=== PATIENT | male | born 1950 | race Caucasian/White ===

== ENCOUNTER 2018-06-28 09:45 | Outpatient (RCR) | payer MEDICARE, OTHER, SELFPAY ==
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
== END 2018-06-28 16:40 ==
LOC: PHYS 09:45
PROVIDERS: PCP Family Medicine; Visit Provider Family Medicine
DX: S39.012A Strain of muscle, fascia and tendon of lower back, initial encounter (principal)
CPT/HCPCS: 97110; 97140; 97162

== ENCOUNTER → 2018-08-18 06:46 | Outpatient (CLI) | payer MEDICARE, OTHER, SELFPAY ==
[2018-08-18 08:10] LABS: Appearance Urine UA CLEAR; Bilirubin Urine UA NEGATIVE (NEGATIVE); Color Urine UA YELLOW; Glucose Urine UA NEGATIVE (Negative); Ketones Urine UA NEGATIVE (NEGATIVE); Leukocyte Esterase Urine UA NEGATIVE (NEGATIVE); Nitrite Urine UA NEGATIVE (Negative); Occult Blood Urine UA NEGATIVE (Negative); Protein Urine UA NEGATIVE (Negative); Specific Gravity Urine UA 1.025 (1.000-1.035); Urobilinogen Urine UA 0.2 E.U./dL (0.2); pH Urine UA 5.5 (4.5-8.0)
[2018-08-18 08:15] LABS: Add Manual Diff / Slide Review NO; Basophils Absolute Auto 0 /uL (0-100); Basophils Percent Auto 0.8 % (0-2); Eosinophils Absolute Auto 300 /uL (0-450); Eosinophils Percent Auto 4.4 % (2-4); Hematocrit 43.8 % (41-53); Hemoglobin 14.7 g/dL (13.5-17.5); Lymphocytes Absolute Auto 1800 /uL (1100-4500); Mean Corpuscular HGB Conc 33.5 % (30-36); Mean Corpuscular Hemoglobin 31.4 PG (26-34); Mean Corpuscular Volume 93.6 fL (80-100); Monocytes Absolute Auto 400 /uL (0-900); Monocytes Percent Auto 6.1 % (3-14); Neutrophils Absolute Auto 3400 /uL (1500-7000); Neutrophils Percent Auto 57.7 % (50-75); Platelet Count 299 X10^3/uL (150-400); Red Blood Cell Count 4.68 X10^6/uL (4.5-5.9); Red Cell Distribution Width 13.3 % (11.6-14.8); White Blood Cell Count 5.8 X10^3/uL (4.5-11.0)
[2018-08-18 08:34] LABS: Alanine Aminotransferase 20 IU/L (21-72); Albumin 4.2 g/dL (3.5-5.0); Albumin Globulin Ratio 1.6 (1.0-2.8); Alkaline Phosphatase 90 U/L (38-126); Aspartate Aminotransferase 20 IU/L (17-59); BUN Creatinine Ratio 42.9 (6-22); Bilirubin Total 0.4 mg/dL (0.2-1.3); Blood Urea Nitrogen 30 mg/dL (9-20); Calcium 9.6 mg/dL (8.4-10.2); Carbon Dioxide 28 mmol/L (22-32); Chloride 106 mmol/L (98-107); Cholesterol 178 mg/dL (140-199); Estimated Glomerular Filt Rate > 60.0 mL/min (>60); Globulin 2.6 g/dL (1.7-4.1); Glucose 104 mg/dL (80-110); HDL Cholesterol 48 mg/dL (40-60); HEMOLYSIS < 15 (0-50); LDL Cholesterol Calculated 115 mg/dL (<100); Potassium 4.5 mmol/L (3.4-5.1); Sodium 142 mmol/L (137-145); Total Protein 6.8 g/dL (6.3-8.2); Triglycerides 77 mg/dL (35-150)
[2018-08-18 08:57] LABS: Vitamin D 25 Hydroxy (D3) 19.4 ng/mL (30.0-100.0)
[2018-08-18 09:02] LABS: Prostate Specific Antigen Scrn 4.07 ng/mL (0.1-4.0)
[2018-08-18 09:12] LABS: Thyroid Stimulating Hormone 1.43 uIU/mL (0.47-4.68)
== END ==
PROVIDERS: Nurse Practitioner Psychiatric/Mental Health; PCP Family Medicine; Visit Provider Family Medicine
DX: E78.5 Hyperlipidemia, unspecified (principal); F10.20 Alcohol dependence, uncomplicated; Z51.81 Encounter for therapeutic drug level monitoring; Z12.5 Encounter for screening for malignant neoplasm of prostate; F31.9 Bipolar disorder, unspecified
CPT/HCPCS: 36415; 80053; 80061; 81003; 82306; 84443; 85025; G0103

== ENCOUNTER → 2020-06-12 09:43 | Outpatient (CLI) | payer MEDICARE, OTHER, SELFPAY ==
[2020-06-12 10:25] LABS: Add Manual Diff / Slide Review NO; Basophils Absolute Auto 100 /uL (0-100); Basophils Percent Auto 0.9 % (0-2); Eosinophils Absolute Auto 300 /uL (0-450); Eosinophils Percent Auto 4.1 % (2-4); Hematocrit 42.6 % (41-53); Hemoglobin 14.3 g/dL (13.5-17.5); Lymphocytes Absolute Auto 1600 /uL (1100-4500); Lymphocytes Percent Auto 25.1 % (25-40); Mean Corpuscular HGB Conc 33.5 % (30-36); Mean Corpuscular Hemoglobin 31.1 PG (26-34); Mean Corpuscular Volume 92.8 fL (80-100); Monocytes Absolute Auto 500 /uL (0-900); Monocytes Percent Auto 8.4 % (3-14); Neutrophils Absolute Auto 4000 /uL (1500-7000); Neutrophils Percent Auto 61.5 % (50-75); Platelet Count 316 X10^3/uL (150-400); Red Blood Cell Count 4.59 X10^6/uL (4.5-5.9); Red Cell Distribution Width 13.3 % (11.6-14.8); White Blood Cell Count 6.5 X10^3/uL (4.5-11.0)
[2020-06-12 11:10] LABS: Alanine Aminotransferase 20 IU/L (<50); Albumin Globulin Ratio 1.7 (1.0-2.8); Alkaline Phosphatase 78 U/L (38-126); Aspartate Aminotransferase 21 IU/L (17-59); BUN Creatinine Ratio 25.8 (6-22); Blood Urea Nitrogen 17 mg/dL (9-20); Calcium 9.4 mg/dL (8.4-10.2); Carbon Dioxide 27 mmol/L (22-32); Chloride 106 mmol/L (98-107); Cholesterol 184 mg/dL (140-199); Estimated Glomerular Filt Rate > 60.0 mL/min (>60); Globulin 2.3 g/dL (1.7-4.1); Glucose 99 mg/dL (80-110); HDL Cholesterol 64 mg/dL (40-60); HEMOLYSIS < 15 (0-50); LDL Cholesterol Calculated 83 mg/dL (<100); Potassium 4.4 mmol/L (3.4-5.1); Sodium 139 mmol/L (137-145); Total Protein 6.3 g/dL (6.3-8.2); Triglycerides 183 mg/dL (35-150)
[2020-06-12 11:11] LABS: Bilirubin Total < 0.1 mg/dL (0.2-1.3)
[2020-06-12 11:38] LABS: Prostate Specific Antigen Scrn 4.13 ng/mL (0.1-4.0)
== END ==
PROVIDERS: PCP Family Medicine; Referring Provider Family Medicine; Visit Provider Family Medicine
DX: E03.8 Other specified hypothyroidism (principal); Z12.5 Encounter for screening for malignant neoplasm of prostate; E78.5 Hyperlipidemia, unspecified; I10 Essential (primary) hypertension
CPT/HCPCS: 36415; 80053; 80061; 85025; G0103

== ENCOUNTER 2020-10-20 15:49 | Emergency (ER) | payer MEDICARE, OTHER, SELFPAY ==
[2020-10-20 15:55] VITALS: BP 133/83; PULSE 83; RESP 16; TEMP 36.9; O2SAT 99
[2020-10-20] MEDS: TET,DIPH,PERTUSS(ACELL),VAC/PF 0.5 ML SYRINGE IM (16:17)
--- NOTE | 2020-10-20 16:37 | ED.WOUNDLAC ---
HPI - Wound/Laceration General Chief Complaint: Wound/Laceration Stated Complaint: Head Laceration, No Blood Thinners Time Seen by Provider: 10/20/20 16:35 Source: patient Mode of arrival: Ambulatory History of Present Illness HPI narrative: Patient is a 70-year-old male who presents with a head laceration. He states he was looking under the rod of his car he stood up hit the top of his head on the corner of the rod and bled. He is not on any anti-platelet or anti coagulation. He did not lose consciousness no nausea or vomiting. Related Data Home Medications Medication Instructions Recorded Confirmed cyanocobalamin (vitamin B-12) 250 250 mcg PO QDAY #0 04/03/16 10/02/20 mcg tablet (Vitamin B-12) [OMEGA-3] PO QDAY #0 02/04/17 10/02/20 clobetasol-emollient 0.05 % 1 samuel TOPICAL #0 07/05/17 10/02/20 topical cream cholecalciferol (vitamin D3) 25 1,000 unit PO DAILY 12/30/18 10/02/20 mcg (1,000 unit) capsule phytonadione (vitamin K1) 5 mg 5 mg PO DAILY 11/16/19 10/02/20 tablet multivitamin 1 cap PO DAILY 01/18/20 10/02/20 Previous Rx's Medication Instructions Recorded triamcinolone acetonide 0.1 % 1 samuel TOPICAL BID #30 gm 03/05/17 topical cream clotrimazole-betamethasone 1 1 samuel TOPICAL BID #30 gm 04/06/17 %-0.05 % topical cream (Lotrisone) hydroxyzine HCl 10 mg tablet 20 mg PO BID PRN #120 tab MDD 40 mg 10/02/20 lamotrigine 100 mg tablet 200 mg PO QDAY #180 tab 10/02/20 risperidone 0.5 mg tablet 0.5 mg PO BEDTIME #90 tab 10/02/20 (Risperdal) Allergies Allergy/AdvReac Type Severity Reaction Status Date / Time No Known Drug Allergies Allergy Verified 10/02/20 08:59 Review of Systems Review of Systems Narrative: GENERAL: Denies chills,fever HEENT: Denies throat pain RESPIRATORY: Denies dyspnea, cough, wheezing CARDIOVASCULAR: Denies chest pain, palpitations GASTROINTESTINAL: Denies nausea, vomiting MUSCULOSKELETAL: Denies extremity pain, injury SKIN: Scalp laceration, see HPI NEUROLOGIC: Denies weakness, dizziness, headache, numbness 8 point review of systems is negative except for those stated above and HPI Patient History Medical History Cataracts, bilateral (~2015) Fractures (~2000) Herpes (~1969) Preventative health care Psoriasis (~2015) Surgical History Anesthesia History of eye surgery (~2015) History of lithotripsy (~1982) History of tonsillectomy Family History Father Cancer Brother Cancer Grandfather Flu Grandfather History of heart disease Hyperlipidemia Hypertension Social History Smoking Status: Former smoker Smoking Status: Former smoker Substance Use Type: marijuana Exam Initial Vital Signs Initial Vital Signs: Vital Signs Temperature 98.5 F 10/20/20 15:55 Pulse Rate 83 10/20/20 15:55 Respiratory Rate 16 10/20/20 15:55 Blood Pressure 133/83 10/20/20 15:55 Pulse Oximetry 99 10/20/20 15:55 GENERAL: Well-appearing, well-nourished and in no acute distress. CARDIOVASCULAR: peripheral pulses in tact, cap refill <2 sec RESPIRATORY: No respiratory distress, speaks in full sentences without difficulty EXTREMITIES: Normal range of motion, no clubbing or edema. Neurovascularly intact NEUROLOGICAL: Cranial nerves II through XII grossly intact. Normal gait and speech. SKIN: 4cm laceration superior part of scalp more on the right side. 2 cm of that is some mild gapping but overall has good skin approximation Procedures Laceration Repair Laceration 1: Time of procedure: 17:07 Size (cm): 4 Description: linear Depth: simple, single layer Local Anesthetic: lidocaine 1% Amount of anesthesia used (mL): 4 Pre-repair: wound explored, irrigated extensively and deep structures intact Skin layer closed with: carolina (4) Course Orders Ordered: Discontinued Medications Diphtheria/Tetanus/Acell Pertussis (Tet,Diph,Pertuss(Acell),Vac/Pf 0.5 Ml Syringe) 0.5 ml IM .ONCE ONE Stop: 10/20/20 16:04 Last Admin: 10/20/20 16:17 Dose: 0.5 ml Documented by: ERROL Lidocaine HCl (Lidocaine 1% (Pf)) 4 ml SUBCUT NOW ONE Stop: 10/20/20 16:40 Vital Signs Vital signs: Vital Signs - 8 hr 10/20/20 15:55 Temperature 98.5 F Pulse Rate 83 Respiratory Rate 16 Blood Pressure 133/83 Pulse Oximetry 99 Discharge Plan Departure Patient Disposition: Home Clinical Impression: Laceration of scalp Qualifiers: Encounter type: initial encounter Qualified Code(s): S01.01XA - Laceration without foreign body of scalp, initial encounter Instructions: DI for Laceration Repair -- [place] Activity Restrictions/Additional Instructions: Unfortunately you cut the top of your head today and required 4 carolina. You will need to have your carolina removed in about 5 days either by her primary care physician, walk-in clinic or the emergency department. You may wash your hair. Infected is encouraged that you keep this clean and dry. You may apply Neosporin to his or antibiotic ointment 1-2 times daily to help with healing. You may take Tylenol 650 mg every 4-6 hours if needed for pain Or you may take Motrin 600 mg every 8 hours if needed for pain Please follow-up with your primary care provider in the next 5 days to have your carolina removed Return to the emergency department if you should have increased redness pus swelling, persistent vomiting numbness tingling or weakness or any new concerning symptoms Prescriptions: No Action cholecalciferol (vitamin D3) 1,000 unit capsule 1,000 unit PO DAILY RF: 0 multivitamin Capsule 1 cap PO DAILY RF: 0 risperidone [Risperdal] 0.5 mg tablet 0.5 mg PO BEDTIME Qty: 90 RF: 3 lamotrigine 100 mg tablet 200 mg PO QDAY Qty: 180 RF: 3 hydroxyzine HCl 10 mg tablet 20 mg PO BID MDD 40 mg PRN (Reason: anxiety) Qty: 120 RF: 3 phytonadione (vitamin K1) 5 mg tablet 5 mg PO DAILY RF: 0 cyanocobalamin (vitamin B-12) [Vitamin B-12] 250 MCG tablet 250 mcg PO QDAY Qty: 0 RF: 0 [OMEGA-3] PO QDAY Qty: 0 RF: 0 triamcinolone acetonide 0.1 % cream 1 samuel Topical BID Qty: 30 RF: 0 clotrimazole-betamethasone [Lotrisone] 15 GM cream 1 samuel Topical BID Qty: 30 RF: 1 clobetasol-emollient 0.05 % cream 1 samuel Topical Qty: 0 RF: 0 Referrals: Arron Franz DO [Primary Care Provider] -
[2020-10-20] MEDS: LIDOCAINE 1% (PF) 4 ML SUBCUT (17:20)
== END 2020-10-20 17:23 | disposition home or self-care (01) ==
PROVIDERS: Emergency Provider Emergency Medicine; PCP Family Medicine
DX: S01.01XA Laceration without foreign body of scalp, initial encounter (principal); W22.8XXA Striking against or struck by other objects, initial encounter; Z23 Encounter for immunization
CPT/HCPCS: 12002; 90471; 99283; 90715

== ENCOUNTER 2020-10-29 12:20 | Emergency (ER) | payer MEDICARE, OTHER, SELFPAY ==
[2020-10-29 12:37] VITALS: BP 122/76; PULSE 63; RESP 14; TEMP 36.2; O2SAT 99
--- NOTE | 2020-10-29 14:00 | ED.RECABL ---
HPI - Recheck/Abnormal Lab/Rx General Chief Complaint: Recheck/Abnormal Lab/Rx Stated Complaint: Needs stitches out Time Seen by Provider: 10/29/20 14:00 Source: patient Mode of arrival: Ambulatory Limitations: no limitations History of Present Illness HPI narrative: This is a 70-year-old male comes emergency department with request for for move all of carolina. Patient had carolina placed in his scalp after hitting his head on the rod of his car while working on it and standing up words. Patient states it has been healing well. They have been putting some triple manic ointment on it. He has no other concerns or complaints today. Related Data Home Medications Medication Instructions Recorded Confirmed cyanocobalamin (vitamin B-12) 250 250 mcg PO QDAY #0 04/03/16 10/02/20 mcg tablet (Vitamin B-12) [OMEGA-3] PO QDAY #0 02/04/17 10/02/20 clobetasol-emollient 0.05 % 1 samuel TOPICAL #0 07/05/17 10/02/20 topical cream cholecalciferol (vitamin D3) 25 1,000 unit PO DAILY 12/30/18 10/02/20 mcg (1,000 unit) capsule phytonadione (vitamin K1) 5 mg 5 mg PO DAILY 11/16/19 10/02/20 tablet multivitamin 1 cap PO DAILY 01/18/20 10/02/20 Previous Rx's Medication Instructions Recorded triamcinolone acetonide 0.1 % 1 samuel TOPICAL BID #30 gm 03/05/17 topical cream clotrimazole-betamethasone 1 1 samuel TOPICAL BID #30 gm 04/06/17 %-0.05 % topical cream (Lotrisone) hydroxyzine HCl 10 mg tablet 20 mg PO BID PRN #120 tab MDD 40 mg 10/02/20 lamotrigine 100 mg tablet 200 mg PO QDAY #180 tab 10/02/20 risperidone 0.5 mg tablet 0.5 mg PO BEDTIME #90 tab 10/02/20 (Risperdal) Allergies Allergy/AdvReac Type Severity Reaction Status Date / Time No Known Drug Allergies Allergy Verified 10/02/20 08:59 Patient History Medical History Cataracts, bilateral (~2015) Fractures (~2000) Herpes (~1969) Preventative health care Psoriasis (~2015) Surgical History Anesthesia History of eye surgery (~2015) History of lithotripsy (~1982) History of tonsillectomy Family History Father Cancer Brother Cancer Grandfather Flu Grandfather History of heart disease Hyperlipidemia Hypertension Social History Smoking Status: Former smoker Smoking Status: Former smoker Substance Use Type: marijuana Exam Narrative Exam Narrative: GENERAL: Alert and oriented x three, male in no acute distress. HEENT: Head normocephalic, atraumatic, EOMI, pupils reactive, face symmetric, moist mucous membranes NECK: Supple, full range of motion EXTREMITIES: Normal range of motion. NEUROLOGICAL: Cranial nerves II through XII grossly intact. Moving all extremities SKIN: Warm, dry, no petechiae, no rashes or lesions, patient has a scab over his scalp which some is the area of incision. There is otherwise clean dry and intact and appears to have healed well. Initial Vital Signs Initial Vital Signs: Vital Signs Temperature 97.1 F L 10/29/20 12:37 Pulse Rate 63 10/29/20 12:37 Respiratory Rate 14 10/29/20 12:37 Blood Pressure 122/76 10/29/20 12:37 Pulse Oximetry 99 10/29/20 12:37 Course Vital Signs Vital signs: Vital Signs - 8 hr 10/29/20 12:37 Temperature 97.1 F L Pulse Rate 63 Respiratory Rate 14 Blood Pressure 122/76 Pulse Oximetry 99 Discharge Plan Departure Patient Disposition: Home Clinical Impression: Encounter for removal of sutures Instructions: DI for Suture Removal Activity Restrictions/Additional Instructions: You may return to your normal activities. You may wash your hair is you normally do. Please return if you have any signs of infection or new concerns. Prescriptions: No Action cholecalciferol (vitamin D3) 1,000 unit capsule 1,000 unit PO DAILY RF: 0 multivitamin Capsule 1 cap PO DAILY RF: 0 risperidone [Risperdal] 0.5 mg tablet 0.5 mg PO BEDTIME Qty: 90 RF: 3 lamotrigine 100 mg tablet 200 mg PO QDAY Qty: 180 RF: 3 hydroxyzine HCl 10 mg tablet 20 mg PO BID MDD 40 mg PRN (Reason: anxiety) Qty: 120 RF: 3 phytonadione (vitamin K1) 5 mg tablet 5 mg PO DAILY RF: 0 cyanocobalamin (vitamin B-12) [Vitamin B-12] 250 MCG tablet 250 mcg PO QDAY Qty: 0 RF: 0 [OMEGA-3] PO QDAY Qty: 0 RF: 0 triamcinolone acetonide 0.1 % cream 1 samuel Topical BID Qty: 30 RF: 0 clotrimazole-betamethasone [Lotrisone] 15 GM cream 1 samuel Topical BID Qty: 30 RF: 1 clobetasol-emollient 0.05 % cream 1 samuel Topical Qty: 0 RF: 0 Referrals: Arron Franz DO [Primary Care Provider] -
== END 2020-10-29 14:23 | disposition home or self-care (01) ==
PROVIDERS: Emergency Provider Emergency Medicine; PCP Family Medicine
DX: Z48.02 Encounter for removal of sutures (principal)
CPT/HCPCS: 99281

== ENCOUNTER → 2020-11-12 06:35 | Outpatient (CLI) | payer MEDICARE, OTHER, SELFPAY ==
[2020-11-12 09:15] LABS: Add Manual Diff / Slide Review NO; Basophils Absolute Auto 100 /uL (0-100); Basophils Percent Auto 0.9 % (0-2); Eosinophils Absolute Auto 200 /uL (0-450); Eosinophils Percent Auto 2.5 % (2-4); Hematocrit 44.3 % (41-53); Hemoglobin 14.8 g/dL (13.5-17.5); Lymphocytes Absolute Auto 1500 /uL (1100-4500); Lymphocytes Percent Auto 22.8 % (25-40); Mean Corpuscular HGB Conc 33.4 % (30-36); Mean Corpuscular Hemoglobin 31.1 PG (26-34); Monocytes Absolute Auto 500 /uL (0-900); Monocytes Percent Auto 8.2 % (3-14); Neutrophils Absolute Auto 4400 /uL (1500-7000); Neutrophils Percent Auto 65.6 % (50-75); Platelet Count 269 X10^3/uL (150-400); Red Blood Cell Count 4.76 X10^6/uL (4.5-5.9); Red Cell Distribution Width 13.2 % (11.6-14.8); White Blood Cell Count 6.6 X10^3/uL (4.5-11.0)
[2020-11-12 09:38] LABS: Alanine Aminotransferase 25 IU/L (<50); Albumin 4.2 g/dL (3.5-5.0); Albumin Globulin Ratio 1.6 (1.0-2.8); Alkaline Phosphatase 75 U/L (38-126); Aspartate Aminotransferase 27 IU/L (17-59); Bilirubin Total 0.4 mg/dL (0.2-1.3); Blood Urea Nitrogen 17 mg/dL (9-20); Calcium 10.3 mg/dL (8.4-10.2); Carbon Dioxide 28 mmol/L (22-32); Chloride 106 mmol/L (98-107); Cholesterol 214 mg/dL (140-199); Estimated Glomerular Filt Rate > 60.0 mL/min (>60); Globulin 2.6 g/dL (1.7-4.1); Glucose 110 mg/dL (80-110); HDL Cholesterol 68 mg/dL (40-60); HEMOLYSIS < 15 (0-50); LDL Cholesterol Calculated 131 mg/dL (<100); Potassium 4.7 mmol/L (3.4-5.1); Sodium 141 mmol/L (137-145); Total Protein 6.8 g/dL (6.3-8.2); Triglycerides 76 mg/dL (35-150)
[2020-11-12 09:53] LABS: Prostate Specific Antigen 4.53 ng/mL (0.10-4.00)
[2020-11-12 09:59] LABS: TSH w/ Reflex to FT4 1.07 uIU/mL (0.47-4.68)
== END ==
PROVIDERS: PCP Family Medicine; Referring Provider Family Medicine; Visit Provider Family Medicine
DX: Z00.00 Encounter for general adult medical examination without abnormal findings (principal); N40.0 Benign prostatic hyperplasia without lower urinary tract symptoms; E78.5 Hyperlipidemia, unspecified; R53.83 Other fatigue; Z13.29 Encounter for screening for other suspected endocrine disorder; R97.20 Elevated prostate specific antigen [PSA]
CPT/HCPCS: 36415; 80053; 80061; 84153; 84443; 85025

== ENCOUNTER → 2020-11-21 14:57 | Outpatient (CLI) | payer MEDICARE, OTHER, SELFPAY ==
[2020-11-21 16:11] LABS: Alanine Aminotransferase 23 IU/L (<50); Albumin Globulin Ratio 1.5 (1.0-2.8); Alkaline Phosphatase 79 U/L (38-126); Aspartate Aminotransferase 30 IU/L (17-59); Bilirubin Total 0.4 mg/dL (0.2-1.3); Bilirubin Unconjugated 0.3 mg/dL (0.0-1.1); Globulin 2.6 g/dL (1.7-4.1); HEMOLYSIS 23 (0-50); Total Protein 6.6 g/dL (6.3-8.2)
[2020-11-21 16:49] LABS: Hepatitis B Surface Antigen NEGATIVE s/c (NEGATIVE)
== END ==
PROVIDERS: PCP Family Medicine; Referring Provider Physician Assistant; Visit Provider Physician Assistant
DX: L40.0 Psoriasis vulgaris (principal)
CPT/HCPCS: 36415; 80076; 87340

== ENCOUNTER → 2020-12-30 10:22 | Outpatient (CLI) | payer MEDICARE, OTHER, SELFPAY ==
[2020-12-30 12:32] LABS: Add Manual Diff / Slide Review NO; Basophils Absolute Auto 0 /uL (0-100); Basophils Percent Auto 0.7 % (0-2); Eosinophils Absolute Auto 200 /uL (0-450); Eosinophils Percent Auto 3.7 % (2-4); Hematocrit 44.2 % (41-53); Hemoglobin 14.5 g/dL (13.5-17.5); Lymphocytes Absolute Auto 1700 /uL (1100-4500); Lymphocytes Percent Auto 26.8 % (25-40); Mean Corpuscular HGB Conc 32.8 % (30-36); Mean Corpuscular Hemoglobin 30.5 PG (26-34); Monocytes Absolute Auto 400 /uL (0-900); Monocytes Percent Auto 6.9 % (3-14); Neutrophils Absolute Auto 4000 /uL (1500-7000); Neutrophils Percent Auto 61.9 % (50-75); Platelet Count 314 X10^3/uL (150-400); Red Blood Cell Count 4.75 X10^6/uL (4.5-5.9); Red Cell Distribution Width 14.4 % (11.6-14.8); White Blood Cell Count 6.5 X10^3/uL (4.5-11.0)
[2020-12-30 12:37] LABS: Alanine Aminotransferase 27 IU/L (<50); Albumin 4.5 g/dL (3.5-5.0); Albumin Globulin Ratio 1.9 (1.0-2.8); Alkaline Phosphatase 80 U/L (38-126); Aspartate Aminotransferase 26 IU/L (17-59); Bilirubin Total 0.3 mg/dL (0.2-1.3); Bilirubin Unconjugated 0.1 mg/dL (0.0-1.1); Globulin 2.4 g/dL (1.7-4.1); HEMOLYSIS < 15 (0-50); Total Protein 6.9 g/dL (6.3-8.2)
[2020-12-30 16:01] LABS: Hep C Virus Ab w/Reflex Quant NEGATIVE s/c (NEGATIVE)
[2020-12-31 03:44] LABS: Hepatitis B Surf AB Quant 13.1 mIU/mL (Immunity>9.9)
[2020-12-31 06:38] LABS: Hepatitis B Core AB w/Reflex Negative (Negative)
[2021-01-02 16:27] LABS: QuantiFERON Mitogen Value >10.00 IU/mL (.); QuantiFERON Nil Value 0.07 IU/mL (.); QuantiFERON TB Gold Plus Negative (Negative); QuantiFERON TB1 Ag Value 0.17 IU/mL (.); QuantiFERON TB2 Ag Value 0.21 IU/mL (.)
== END ==
PROVIDERS: PCP Family Medicine; Referring Provider Physician Assistant; Visit Provider Physician Assistant
DX: L40.0 Psoriasis vulgaris
CPT/HCPCS: 36415; 80076; 85025; 86480; 86704; 86706; 86803

== ENCOUNTER → 2021-01-23 08:20 | Outpatient (CLI) | payer MEDICARE, OTHER, SELFPAY ==
[2021-01-23 09:21] LABS: Add Manual Diff / Slide Review NO; Basophils Absolute Auto 100 /uL (0-100); Eosinophils Absolute Auto 200 /uL (0-450); Eosinophils Percent Auto 2.5 % (2-4); Hematocrit 40.7 % (41-53); Hemoglobin 13.9 g/dL (13.5-17.5); Lymphocytes Absolute Auto 1700 /uL (1100-4500); Lymphocytes Percent Auto 24.9 % (25-40); Mean Corpuscular HGB Conc 34.1 % (30-36); Mean Corpuscular Hemoglobin 31.1 PG (26-34); Mean Corpuscular Volume 91.2 fL (80-100); Monocytes Absolute Auto 500 /uL (0-900); Monocytes Percent Auto 7.5 % (3-14); Neutrophils Absolute Auto 4500 /uL (1500-7000); Neutrophils Percent Auto 64.1 % (50-75); Platelet Count 355 X10^3/uL (150-400); Red Blood Cell Count 4.47 X10^6/uL (4.5-5.9); Red Cell Distribution Width 13.6 % (11.6-14.8)
[2021-01-23 09:35] LABS: Alanine Aminotransferase 17 IU/L (<50); Albumin Globulin Ratio 1.7 (1.0-2.8); Alkaline Phosphatase 69 U/L (38-126); Aspartate Aminotransferase 21 IU/L (17-59); Bilirubin Total 0.4 mg/dL (0.2-1.3); Bilirubin Unconjugated 0.3 mg/dL (0.0-1.1); Globulin 2.3 g/dL (1.7-4.1); HEMOLYSIS < 15 (0-50); Total Protein 6.3 g/dL (6.3-8.2)
== END ==
PROVIDERS: PCP Family Medicine; Referring Provider Physician Assistant; Visit Provider Physician Assistant
DX: L40.0 Psoriasis vulgaris (principal)
CPT/HCPCS: 36415; 80076; 85025

== ENCOUNTER → 2021-02-11 12:53 | Outpatient (CLI) | payer MEDICARE, OTHER, SELFPAY ==
[2021-02-11 13:36] LABS: Add Manual Diff / Slide Review NO; Basophils Absolute Auto 0 /uL (0-100); Basophils Percent Auto 0.7 % (0-2); Eosinophils Absolute Auto 100 /uL (0-450); Eosinophils Percent Auto 1.5 % (2-4); Hemoglobin 13.4 g/dL (13.5-17.5); Lymphocytes Absolute Auto 1300 /uL (1100-4500); Lymphocytes Percent Auto 19.1 % (25-40); Mean Corpuscular HGB Conc 33.5 % (30-36); Mean Corpuscular Hemoglobin 30.7 PG (26-34); Mean Corpuscular Volume 91.7 fL (80-100); Monocytes Absolute Auto 500 /uL (0-900); Monocytes Percent Auto 7.1 % (3-14); Neutrophils Absolute Auto 4800 /uL (1500-7000); Neutrophils Percent Auto 71.6 % (50-75); Platelet Count 288 X10^3/uL (150-400); Red Blood Cell Count 4.36 X10^6/uL (4.5-5.9); Red Cell Distribution Width 13.6 % (11.6-14.8); White Blood Cell Count 6.7 X10^3/uL (4.5-11.0)
[2021-02-11 14:12] LABS: Alanine Aminotransferase 15 IU/L (<50); Albumin 4.1 g/dL (3.5-5.0); Albumin Globulin Ratio 1.7 (1.0-2.8); Alkaline Phosphatase 81 U/L (38-126); Aspartate Aminotransferase 21 IU/L (17-59); BUN Creatinine Ratio 25.4 (6-22); Bilirubin Total 0.4 mg/dL (0.2-1.3); Bilirubin Unconjugated 0.5 mg/dL (0.0-1.1); Blood Urea Nitrogen 17 mg/dL (9-20); Calcium 9.4 mg/dL (8.4-10.2); Carbon Dioxide 26 mmol/L (22-32); Chloride 103 mmol/L (98-107); Estimated Glomerular Filt Rate > 60.0 mL/min (>60); Globulin 2.4 g/dL (1.7-4.1); Glucose 129 mg/dL (80-110); HEMOLYSIS < 15 (0-50); Sodium 139 mmol/L (137-145); Total Protein 6.5 g/dL (6.3-8.2)
== END ==
PROVIDERS: PCP Family Medicine; Referring Provider Physician Assistant; Visit Provider Physician Assistant
DX: L40.0 Psoriasis vulgaris (principal)
CPT/HCPCS: 36415; 80048; 80076; 85025

== ENCOUNTER → 2021-03-04 12:58 | Outpatient (CLI) | payer MEDICARE, OTHER, SELFPAY ==
[2021-03-04 14:40] LABS: Add Manual Diff / Slide Review NO; Basophils Absolute Auto 100 /uL (0-100); Eosinophils Absolute Auto 100 /uL (0-450); Eosinophils Percent Auto 1.7 % (2-4); Hematocrit 41.8 % (41-53); Hemoglobin 13.9 g/dL (13.5-17.5); Lymphocytes Absolute Auto 1900 /uL (1100-4500); Lymphocytes Percent Auto 28.6 % (25-40); Mean Corpuscular HGB Conc 33.2 % (30-36); Mean Corpuscular Hemoglobin 30.7 PG (26-34); Mean Corpuscular Volume 92.3 fL (80-100); Monocytes Absolute Auto 500 /uL (0-900); Monocytes Percent Auto 8.2 % (3-14); Neutrophils Absolute Auto 4000 /uL (1500-7000); Neutrophils Percent Auto 60.5 % (50-75); Platelet Count 306 X10^3/uL (150-400); Red Blood Cell Count 4.53 X10^6/uL (4.5-5.9); Red Cell Distribution Width 14.1 % (11.6-14.8); White Blood Cell Count 6.5 X10^3/uL (4.5-11.0)
[2021-03-04 14:57] LABS: Alanine Aminotransferase 20 IU/L (<50); Albumin 4.3 g/dL (3.5-5.0); Albumin Globulin Ratio 1.9 (1.0-2.8); Alkaline Phosphatase 76 U/L (38-126); Aspartate Aminotransferase 21 IU/L (17-59); BUN Creatinine Ratio 25.7 (6-22); Bilirubin Total 0.3 mg/dL (0.2-1.3); Bilirubin Unconjugated 0.4 mg/dL (0.0-1.1); Blood Urea Nitrogen 19 mg/dL (9-20); Calcium 9.7 mg/dL (8.4-10.2); Carbon Dioxide 29 mmol/L (22-32); Chloride 101 mmol/L (98-107); Estimated Glomerular Filt Rate > 60.0 mL/min (>60); Globulin 2.3 g/dL (1.7-4.1); Glucose 106 mg/dL (80-110); HEMOLYSIS < 15 (0-50); Potassium 4.5 mmol/L (3.4-5.1); Sodium 139 mmol/L (137-145); Total Protein 6.6 g/dL (6.3-8.2)
== END ==
PROVIDERS: PCP Family Medicine; Referring Provider Physician Assistant; Visit Provider Physician Assistant
DX: L40.0 Psoriasis vulgaris (principal)
CPT/HCPCS: 36415; 80048; 80076; 85025

== ENCOUNTER → 2021-03-31 14:15 | Outpatient (CLI) | payer MEDICARE, OTHER, SELFPAY ==
[2021-03-31 15:21] LABS: Add Manual Diff / Slide Review NO; Basophils Absolute Auto 100 /uL (0-100); Basophils Percent Auto 0.7 % (0-2); Eosinophils Absolute Auto 200 /uL (0-450); Eosinophils Percent Auto 2.3 % (2-4); Hematocrit 42.1 % (41-53); Hemoglobin 14.5 g/dL (13.5-17.5); Lymphocytes Absolute Auto 1400 /uL (1100-4500); Lymphocytes Percent Auto 19.6 % (25-40); Mean Corpuscular HGB Conc 34.5 % (30-36); Mean Corpuscular Hemoglobin 31.8 PG (26-34); Mean Corpuscular Volume 92.1 fL (80-100); Monocytes Absolute Auto 600 /uL (0-900); Monocytes Percent Auto 7.9 % (3-14); Neutrophils Absolute Auto 5000 /uL (1500-7000); Neutrophils Percent Auto 69.5 % (50-75); Platelet Count 284 X10^3/uL (150-400); Red Blood Cell Count 4.57 X10^6/uL (4.5-5.9); Red Cell Distribution Width 14.4 % (11.6-14.8); White Blood Cell Count 7.2 X10^3/uL (4.5-11.0)
[2021-03-31 15:42] LABS: Alanine Aminotransferase 21 IU/L (<50); Albumin 4.3 g/dL (3.5-5.0); Albumin Globulin Ratio 1.8 (1.0-2.8); Alkaline Phosphatase 69 U/L (38-126); Aspartate Aminotransferase 22 IU/L (17-59); BUN Creatinine Ratio 27.6 (6-22); Bilirubin Total 0.4 mg/dL (0.2-1.3); Bilirubin Unconjugated 0.5 mg/dL (0.0-1.1); Blood Urea Nitrogen 21 mg/dL (9-20); Carbon Dioxide 27 mmol/L (22-32); Chloride 105 mmol/L (98-107); Estimated Glomerular Filt Rate > 60.0 mL/min (>60); Globulin 2.4 g/dL (1.7-4.1); Glucose 120 mg/dL (80-110); HEMOLYSIS < 15 (0-50); Potassium 4.1 mmol/L (3.4-5.1); Sodium 139 mmol/L (137-145); Total Protein 6.7 g/dL (6.3-8.2)
== END ==
PROVIDERS: PCP Family Medicine; Referring Provider Physician Assistant; Visit Provider Physician Assistant
DX: L40.0 Psoriasis vulgaris (principal)
CPT/HCPCS: 36415; 80048; 80076; 85025

== ENCOUNTER → 2021-05-05 09:53 | Outpatient (CLI) | payer MEDICARE, OTHER, SELFPAY ==
[2021-05-05 10:47] LABS: Hemoglobin A1C% w Est Avg Glu 5.6 % (4.0-6.0)
[2021-05-05 11:18] LABS: Prostate Specific Antigen Scrn 2.73 ng/mL (0.1-4.0)
== END ==
PROVIDERS: PCP Family Medicine; Referring Provider Family Medicine; Visit Provider Family Medicine
DX: Z12.5 Encounter for screening for malignant neoplasm of prostate (principal); R97.20 Elevated prostate specific antigen [PSA]
CPT/HCPCS: 36415; 83036; G0103

== ENCOUNTER → 2021-05-19 14:50 | Outpatient (CLI) | payer MEDICARE, OTHER, SELFPAY ==
[2021-05-19 16:39] LABS: COVID19 -Nasal RAPID Negative (Negative)
== END ==
PROVIDERS: PCP Family Medicine; Visit Provider Family Medicine Sleep Medicine
DX: Z20.822 Contact with and (suspected) exposure to COVID-19 (principal)
CPT/HCPCS: 87635; C9803

== ENCOUNTER 2021-05-21 10:49 | Day surgery (SDC) | payer MEDICARE, OTHER, SELFPAY ==
--- NOTE | 2021-05-19 17:33 | PM.PREOP ---
Pre-operative Note COVID-19 COVID-19 status: Negative Criteria for continued procedure: Expected advancement of disease process, Possibility delay results in more complex future surgery or treatment, Increased loss of function, Delay expected to result in less-positive ultimate med/surg outcome and Non-surgical alternatives not available or appropriate per current SOC Interval Note History & Physical reviewed/Exam performed by Physician: Yes Changes to H&P: No
--- NOTE | 2021-05-19 17:33 | PM.OP.1 ---
Operative Date/Time/Diagnoses Date of procedure: 05/21/21 Time of procedure: 09:45 Procedure & Clinicians Procedure: Preoperative diagnoses: 1. Significant right cortical and Nuclear sclerotic cataract 2. Astigmatism which is to be corrected with a toric intraocular lens implant. 3. Bipolar disorder requiring general anesthesia poor cooperation 4. Depression 5. For left visual potential after multiple previous surgeries for retinal detachment Postoperative diagnoses: 1. Right Cataract removal with phacoemulsification with toric posterior chamber intraocular lens implant placed. Procedure: Phacoemulsification with posterior chamber toric intraocular lens implant. Surgeon: Digna Barnhart MD Complications: None Specimen: None Implant: [id number] [place] 125 degrees Blood loss: None Anesthesia: General anesthesia using laryngeal mask airway and topical anesthesia assist. Description of procedure: Patient presents with a complaint of decreased vision due to cataract which is affecting activities of daily living especially night driving. The patient wants surgery to improve vision and astigmatism. The patient understands the extra risk of surgery during the COVID-19 epidemic and wishes to proceed. This is his best seeing eye as he has had multiple surgeries in his left eye for retinal detachment with residual retinal scarring. He has had cataract surgery in his left eye but still has poor visual potential. Due to anxiety and bipolar status he requests general anesthesia. The patient has tested negative for active virus within 72 hours of the procedure. The patient was taken to the operating room and proparacaine drops placed. Indelible ink mcmahon were placed at the 90 and 180 degree meridian. The patient was placed on the operating room table and given IV sedation. A laryngeal mask airway was placed. The eye is manually massaged for 30 sec, prepped using Betadine solution, and draped in the usual sterile fashion. Temporal approach was made, a 1 mm side-port incision was made 90? from the proposed corneal wound. Phenylephrine 1.5% mixed with 1% xylocaine 0.2 cc was placed into the anterior chamber. Endocoat followed by Healon was then placed. A 2.6 mm clear incision with a 2.6 mm blade was placed at the 170 degree meridian. A 360 degree capsulorrhexis style capsulotomy was then performed with a cystitome needle on a Healon. Hydrodelineation and hydrodissection were performed. The phacoemulsification unit is introduced, and sculpting used to groove the central lens. It is then removed in chopping mode. Epi nucleus is removed with epinuclear mode and irrigation aspiration was used to remove the peripheral cortex. The posterior capsule is polished. The intraocular lens is selected, inspected, power confirmed, and placed in the posterior chamber at the desired meridian of 125 degrees. The pupil was not constricted. The wound was stromally hydrated and tested for leaks, there was none and it was left sutureless. A contact lens was used as a bandage due to his inability to tolerate any discomfort postoperatively. No corneal abrasion was present. Preservative-free moxifloxacin0.1 cc was placed into the anterior chamber. Kenalog 0.2 cc was placed in the superior subconjunctival space. A drop of antibiotic and was placed and the eye was patched and shielded. The patient was stable and returned to the recovery room in excellent condition. Dictated by: Digna Barnhart MD Copy to: [facility] Same procedure as scheduled: Yes
[2021-05-21 11:00] VITALS: BP 127/68; PULSE 64; RESP 18; TEMP 36.6; O2SAT 98
[2021-05-21] MEDS: PROPARACAINE 0.5% OPHTH SOL 2 DROPS EYE-OP (11:02)
[2021-05-21] MEDS: CATARACT EYE COMPOUND (10 DROPS/SYRINGE) 3 DROPS EYE-OP (11:03)
[2021-05-21 11:04] VITALS: BMI 19.9
[2021-05-21] MEDS: LACTATED RINGERS 1,000 ML 42 ML IV (11:56)
--- NOTE | 2021-05-21 12:35 | SUR.OPER ---
Supine on eye stretcher, head on extension cradle secured with tape. Arms tucked at sides with blanket. Pillow under knees.
[2021-05-21] MEDS: PHENYLEPHRINE/LIDOCAINE VIAL (OR) 0.2 ML EYE-OP (12:40)
[2021-05-21] MEDS: MOXIFLOXACIN INJ 4 MG/0.8 ML VIAL 0.5 MG EYE-OP (12:40)
[2021-05-21] MEDS: HYALURONATE SODIUM 30 MG-10 MG/ML SYRINGES 1 BOX INTRAOCULA (12:40)
[2021-05-21] MEDS: BALANCED SALT IRRIG SOLN NO.2 500 ML, EPINEPHrine 1 MG IRR (12:41)
[2021-05-21] MEDS: TRIAMCINOLONE 50 MG/5 ML VIAL INJ (12:41)
[2021-05-21 13:10] VITALS: BP 91/59; PULSE 49; RESP 14; TEMP 36.9; O2SAT 97
[2021-05-21 13:15] VITALS: BP 91/60; PULSE 51; RESP 12; O2SAT 98
[2021-05-21 13:20] VITALS: BP 113/80; PULSE 52; RESP 14; O2SAT 99
[2021-05-21 13:25] VITALS: BP 122/79; PULSE 63; RESP 16; O2SAT 98
[2021-05-21 13:33] VITALS: BP 124/77; PULSE 67; RESP 14; TEMP 36.8; O2SAT 99
== END 2021-05-21 13:43 | disposition home or self-care (01) ==
LOC: OR 10:50
PROVIDERS: PCP Family Medicine; Referring Provider Ophthalmology; Visit Provider Ophthalmology
PROC: (CPT 66984; principal; 2021-05-21 11:30)
DX: H25.811 Combined forms of age-related cataract, right eye (principal); H52.201 Unspecified astigmatism, right eye; F31.9 Bipolar disorder, unspecified
CPT/HCPCS: 66984; J0171; J3010; J3301; V2787

== ENCOUNTER → 2021-07-02 13:32 | Outpatient (CLI) | payer MEDICARE, OTHER, SELFPAY ==
[2021-07-02 14:17] LABS: Add Manual Diff / Slide Review NO; Basophils Absolute Auto 100 /uL (0-100); Basophils Percent Auto 0.9 % (0-2); Eosinophils Absolute Auto 100 /uL (0-450); Hematocrit 41.2 % (41-53); Hemoglobin 14.1 g/dL (13.5-17.5); Lymphocytes Absolute Auto 1700 /uL (1100-4500); Lymphocytes Percent Auto 24.8 % (25-40); Mean Corpuscular HGB Conc 34.2 % (30-36); Mean Corpuscular Hemoglobin 31.9 PG (26-34); Mean Corpuscular Volume 93.5 fL (80-100); Monocytes Absolute Auto 500 /uL (0-900); Monocytes Percent Auto 7.2 % (3-14); Neutrophils Absolute Auto 4400 /uL (1500-7000); Neutrophils Percent Auto 65.1 % (50-75); Platelet Count 280 X10^3/uL (150-400); Red Blood Cell Count 4.41 X10^6/uL (4.5-5.9); Red Cell Distribution Width 14.3 % (11.6-14.8); White Blood Cell Count 6.7 X10^3/uL (4.5-11.0)
[2021-07-02 14:35] LABS: Alanine Aminotransferase 31 IU/L (<50); Albumin 4.5 g/dL (3.5-5.0); Albumin Globulin Ratio 1.9 (1.0-2.8); Alkaline Phosphatase 66 U/L (38-126); Aspartate Aminotransferase 27 IU/L (17-59); BUN Creatinine Ratio 33.3 (6-22); Bilirubin Total 0.5 mg/dL (0.2-1.3); Bilirubin Unconjugated 0.5 mg/dL (0.0-1.1); Blood Urea Nitrogen 27 mg/dL (9-20); Carbon Dioxide 30 mmol/L (22-32); Chloride 104 mmol/L (98-107); Estimated Glomerular Filt Rate > 60.0 mL/min (>60); Globulin 2.4 g/dL (1.7-4.1); Glucose 101 mg/dL (80-110); HEMOLYSIS < 15 (0-50); Potassium 4.4 mmol/L (3.4-5.1); Sodium 141 mmol/L (137-145); Total Protein 6.9 g/dL (6.3-8.2)
[2021-07-03 08:58] LABS: PSA Free % 21.9 % (.); PSA, Total 2.7 ng/mL (0.0-4.0)
== END ==
PROVIDERS: Physician Assistant; PCP Family Medicine; Referring Provider Urology; Visit Provider Urology
DX: R97.20 Elevated prostate specific antigen [PSA] (principal); L40.0 Psoriasis vulgaris
CPT/HCPCS: 36415; 80048; 80076; 84153; 84154; 85025

== ENCOUNTER → 2021-07-16 11:14 | Outpatient (CLI) | payer MEDICARE, OTHER, SELFPAY ==
--- NOTE | 2021-07-16 11:15 | DI.CT.S_ITS ---
PROCEDURE: CT ABDOMEN PELVIS WO/W CON INDICATIONS: Microscopic hematuria TECHNIQUE: After the administration of oral contrast, 5 mm thick sections acquired from the diaphragms to the iliac crests. After the administration of intravenous contrast, 5 mm thick sections acquired from the diaphragms to the symphysis. 5 mm thick coronal and sagittal reformats were acquired. For radiation dose reduction, the following was used: automated exposure control, adjustment of mA and/or kV according to patient size. COMPARISON: None. FINDINGS: Lower thorax: Bilateral linear platelike atelectasis or scarring noted at both lung bases. Heart size is within normal limits. No hiatal hernia. Liver: Normal in size and attenuation. No contour deformity present. 1.5 cm simple cysts noted in the caudate lobe Biliary system: No calcified cholelithiasis or pericholecystic inflammation. No intra or extrahepatic bile duct dilatation. Pancreas: Unremarkable without mass or inflammation evident. Spleen: Normal in size and density. Adrenals: Normal morphology and density. Reproductive system: Prostatic hypertrophy elevates the bladder floor. No obstruction. Urinary system: 2.7 cm simple left renal cortical cyst present. Nonobstructive 5 mm right renal calculus present. No hydronephrosis or obstructive uropathy. Gastrointestinal system: Moderate to large amount of fecal debris noted throughout the colon, particularly the right colon. No evidence of obstruction. Appendix: No findings to suggest acute appendicitis. Peritoneal spaces: No mesenteric or retroperitoneal adenopathy. No free air. No free fluid. Vasculature: The IVC, aorta and iliac vasculature are unremarkable. Abdominal wall: Abdominal wall intact without evidence of ventral or inguinal hernias. Musculoskeletal: Normal bone mineralization. Degenerative disc disease and arthropathy noted in lower lumbar spine. No acute fractures. IMPRESSION: 1. Nonobstructive 5 mm right renal calculus without hydronephrosis bilaterally. 2. Prostatic hypertrophy elevates the bladder floor. Approved by: Syed García M.D. on 07/16/2021 at 16:45
== END ==
PROVIDERS: PCP Family Medicine; Referring Provider Urology; Visit Provider Urology
DX: R31.21 Asymptomatic microscopic hematuria (principal); N40.0 Benign prostatic hyperplasia without lower urinary tract symptoms; N20.0 Calculus of kidney; Z87.891 Personal history of nicotine dependence
CPT/HCPCS: 74178; Q9967

== ENCOUNTER → 2021-08-06 10:27 | Outpatient (CLI) | payer MEDICARE, OTHER, SELFPAY ==
[2021-08-06 12:00] LABS: COVID19 -Nasal RAPID Negative (Negative)
== END ==
PROVIDERS: PCP Family Medicine; Visit Provider Urology
DX: Z20.822 Contact with and (suspected) exposure to COVID-19 (principal)
CPT/HCPCS: 87635; C9803

== ENCOUNTER 2021-08-08 10:47 | Day surgery (SDC) | payer MEDICARE, OTHER, SELFPAY ==
[2021-08-05 12:14] VITALS: BMI 20.2
[2021-08-08] VITALS (7 sets, daily range): BP systolic 113–122; BP diastolic 67–75; PULSE 59–88; RESP 16–20; TEMP 36.2–36.8; O2SAT 95–100; BMI 20.2
[2021-08-08] MEDS: LACTATED RINGERS 1,000 ML 42 ML IV (11:31)
--- NOTE | 2021-08-08 12:06 | PM.PREOP ---
Pre-operative Note COVID-19 COVID-19 status: Negative Result date/Date tested (Pos, Neg/Pending): 08/06/21 Criteria for continued procedure: Non-surgical alternatives not available or appropriate per current SOC Interval Note History & Physical reviewed/Exam performed by Physician: Yes Changes to H&P: No
[2021-08-08] MEDS: CEFAZOLIN 2 GM/20 ML SYRINGE IV (12:27)
--- NOTE | 2021-08-08 12:31 | SUR.OPER ---
Lithotomy on padded OR bed, head on pillow, arms secured on padded arm boards at <90 degrees abduction. Legs secured in padded yellow fins stirrups.
--- NOTE | 2021-08-08 13:21 | PM.OP.1 ---
Procedure & Clinicians Procedure: Cystoscopy, right ureteroscopy flexible, laser lithotripsy of stone, basket extraction of stone. Same procedure as scheduled: Yes Indications: This is a very pleasant 71-year-old male who had microscopic hematuria was found to have a right-sided renal calculus. He presents this time for removal of the stone. Surgeon: Girish Nuñez Click Yes if Unassisted: Yes Anesthesia Type: General Operative Notes Findings: Urethral meatus normal, urethra normal along its length. Prostate exhibits minimal to moderate obstructive character with normal mucosa. In the bladder there is moderate trabeculation normal mucosa no mucosal lesions or stones within the bladder. Ureteral orifices in normal position with clear efflux. The stone is identified in lower pole calyx. The ureter and renal pelvis are otherwise normal the stone is fragmented and all fragments removed. No other abnormality was noted. Closure Type: not applicable Specimen(s): other (Stone fragments for compositional analysis) Prosthetic devices, grafts, tissues, transplants, or devices: None Estimated Blood Loss (mL): 0 Tourniquet time (min): 0 Procedure in detail: After informed consent was obtained, the patient was identified and brought to the operating room. He was then placed in a supine position on the table anesthesia was induced to maintain. After ensuring an adequate level of anesthesia the patient was transition to the lithotomy position. The patient was then prepped, draped, prepared for transurethral procedure. After prepping, draping and ensuring an adequate level of anesthesia a 21 [place] cystoscope was passed through the urethra prostate and bladder were cystoscopy was performed. The right ureteral orifice was then identified and a guidewire passed up and collecting system under fluoroscopic visualization. The scope was backed out and this wire was reserved as a safety wire. The scope was reinserted a 2nd wire passed up and into the collecting system on the right. The bladder was drained scope was once again removed. Over the working wire the 2nd wire placed a ureteral access sheath was passed up and in the collecting system without difficulty. The inter portion was removed and the scope passed up and into the collecting system. There sequential nephroscopy was performed and the stone identified. It was then basketed and brought into the renal pelvis where was dropped. The basket was then removed and a laser fiber inserted in the stone broken into 3 fragments. There was also some dust which will pass on its own the laser fiber was then put of removed after the placed was placed in standby and the basket once again inserted the large fragments 3 in number were sequentially removed. The ureteral scope was once again inserted and sequential nephroscopy is performed no other stones were noted. The ureteral scope and the renal access sheath within brought out in tandem and the ureter visualized along its entire length there was no edema and good efflux of urine therefore no stent was left in place. The cystoscope was once again inserted and the bladder drained the wire removed specifically the safety wire. The patient tolerated the procedure well was awakened and transferred to the postanesthesia care unit to be discharged home. There were no complications. The stone fragments were then forwarded to pathology for composition analysis. Anesthesia did give the patient a 30 mg of Toradol IV at the end of the procedure. Complications: none Post-operative Condition: stable Disposition: PACU Plan for aftercare: Discharge to home follow-up my office in 10-14 days.
--- NOTE | 2021-08-08 14:14 | SUR.PHASEII ---
[place] [id number]
--- NOTE | 2021-08-08 14:14 | SUR.PHASEII ---
iv lr 1000cc infused
[2021-08-13 16:31] LABS: Ca oxalate dihydrate 40 % (.); Ca oxalate monohydr 55 % (.); Hydroxyapatite 5 % (.); Size 3x3 mm (.)
== END 2021-08-08 14:10 | disposition home or self-care (01) ==
PROVIDERS: PCP Family Medicine; Referring Provider Urology; Visit Provider Urology
PROC: (CPT 52353; principal; 2021-08-08 12:00)
DX: N20.0 Calculus of kidney (principal)
CPT/HCPCS: 52353; 76000; 82365; C1771; J0690; J1100; J1885; J2250; J2405; J2704; J3010

== ENCOUNTER → 2021-08-14 11:06 | Outpatient (CLI) | payer MEDICARE, OTHER, SELFPAY ==
--- NOTE | 2021-08-14 11:09 | DI.RAD.S_ITS ---
PROCEDURE: XR KUB INDICATIONS: kidney stones TECHNIQUE: One view of the abdomen acquired. COMPARISON: [facility], CT, CT ABDOMEN PELVIS WO/W CON, 07/16/2021, 11:22. [facility], CT, CT KIDNEY URETER BLADDER (KUB), 08/14/2021, 12:21. FINDINGS: Surgical changes and devices: None. Bowel: Nonobstructive bowel gas pattern. Scattered small bowel and colonic gas. Soft tissues: The previously seen right nonobstructive kidney stone is not identified. No suspicious abdominal calcifications. Visualized solid organ contours appear normal in size. Bones: No suspicious bony lesions. IMPRESSION: The previously seen right nonobstructive kidney stone is not identified. Nonobstructive bowel gas pattern. Dictated by: Gibran Yun M.D. on 08/14/2021 at 12:46 Approved by: Gibran Yun M.D. on 08/14/2021 at 12:51
== END ==
LOC: LAB 11:08 → RAD 11:08
PROVIDERS: PCP Family Medicine; Referring Provider Urology; Visit Provider Urology
DX: N20.0 Calculus of kidney (principal)
CPT/HCPCS: 74018

== ENCOUNTER 2021-08-14 11:24 | Emergency (ER) | payer MEDICARE, OTHER, SELFPAY ==
[2021-08-14 11:26] VITALS: BP 134/72; PULSE 63; RESP 15; TEMP 37.1; O2SAT 100; BMI 20.5
--- NOTE | 2021-08-14 12:22 | DI.CT.S_ITS ---
PROCEDURE: CT KIDNEY URETER BLADDER (KUB) INDICATIONS: rt flank pain, hx nephrolithiasis TECHNIQUE: Axial sections were acquired from the lung bases to the pubic symphysis. Coronal and sagittal reformats were performed. For radiation dose reduction, the following was used: automated exposure control, adjustment of mA and/or kV according to patient size. COMPARISON: [facility], CT, CT ABDOMEN PELVIS WO/W CON, 07/16/2021, 11:22. FINDINGS: Image quality: Excellent. Lung bases: Septal thickening in the lower lung thomason. Heart size is normal. Solid organs: Liver: The liver has no mass or intrahepatic biliary ductal dilatation. Biliary: The gallbladder has no gallstones, pericholecystic fluid, gallbladder wall thickening, or surrounding inflammatory change. Pancreas: The pancreas has no mass or ductal dilatation. There is no surrounding inflammation. Spleen: Normal size. There are no masses. Adrenals: No hypertrophy or nodules. Kidneys: No obstructive calculus or hydronephrosis. No solid mass. The left kidney has a 2.5 cm simple cyst. The right kidney demonstrates mild hydronephrosis and the ureter is dilated measuring up to 7 mm. There is no definite occluding stone, however in the distal ureter several hyperdense foci are seen, possibly small stones in the distal ureter at the UVJ. CT urogram would be helpful if further evaluation is required. Peritoneum and bowel: The distal esophagus and stomach are normal. The small bowel has a normal caliber and appearance. The terminal ileum is normal. The large bowel has a normal caliber and appearance. The appendix is normal. No free fluid or air. Nodes and vessels: No retroperitoneal or mesenteric adenopathy by size criteria. Aorta and inferior vena cava are normal in size. Miscellaneous: No abdominal wall mass or hernia. PELVIS: Genitourinary: The bladder has no wall thickening or mass. No bladder calcifications. Bones: Degenerative disc disease at L4-5. No vertebral body compression fractures. IMPRESSION: Mild right hydroureteronephrosis with the right ureter measuring 7 mm. Possible fragmented stones in the distal ureter at the UVJ. CT urogram would be helpful if further evaluation is clinically indicated. Dictated by: Liam Tadeo M.D. on 08/14/2021 at 12:58 Approved by: Liam Tadeo M.D. on 08/14/2021 at 13:04
[2021-08-14 12:33] LABS: Add Manual Diff / Slide Review NO; Basophils Absolute Auto 0 /uL (0-100); Basophils Percent Auto 0.6 % (0-2); Eosinophils Absolute Auto 200 /uL (0-450); Eosinophils Percent Auto 2.7 % (2-4); Hemoglobin 12.4 g/dL (13.5-17.5); Lymphocytes Absolute Auto 1700 /uL (1100-4500); Lymphocytes Percent Auto 30.3 % (25-40); Mean Corpuscular HGB Conc 34.5 % (30-36); Mean Corpuscular Hemoglobin 32.7 PG (26-34); Mean Corpuscular Volume 94.9 fL (80-100); Monocytes Absolute Auto 400 /uL (0-900); Monocytes Percent Auto 7.8 % (3-14); Neutrophils Absolute Auto 3300 /uL (1500-7000); Neutrophils Percent Auto 58.6 % (50-75); Platelet Count 264 X10^3/uL (150-400); Red Cell Distribution Width 14.2 % (11.6-14.8); White Blood Cell Count 5.6 X10^3/uL (4.5-11.0)
[2021-08-14 12:47] LABS: Alanine Aminotransferase 25 IU/L (<50); Albumin 3.4 g/dL (3.5-5.0); Albumin Globulin Ratio 1.4 (1.0-2.8); Alkaline Phosphatase 65 U/L (38-126); Aspartate Aminotransferase 27 IU/L (17-59); BUN Creatinine Ratio 20.2 (6-22); Bilirubin Total 0.6 mg/dL (0.2-1.3); Blood Urea Nitrogen 17 mg/dL (9-20); Calcium 8.7 mg/dL (8.4-10.2); Carbon Dioxide 29 mmol/L (22-32); Chloride 106 mmol/L (98-107); Estimated Glomerular Filt Rate > 60 mL/min (>60); Globulin 2.5 g/dL (1.7-4.1); Glucose 104 mg/dL (80-110); HEMOLYSIS < 15 (0-50); Potassium 4.3 mmol/L (3.4-5.1); Sodium 137 mmol/L (137-145); Total Protein 5.9 g/dL (6.3-8.2)
[2021-08-14 13:01] LABS: Bacteria Urine Few (2-10); RBC Urine 5-10/HPF (0-5/HPF); Squamous Epithelial Cell Urine 0-1 /HPF (0-5/HPF); WBC Urine 30-100/HPF (0-5/HPF)
--- NOTE | 2021-08-14 13:07 | ED_ITS ---
HPI - Male Genitourinary <Brandie Gay [facility] - Last Filed: 08/14/21 14:41> General Chief complaint: Urogenital-Male Stated complaint: Pain post kidney stone removal, not going away Time Seen by Provider: 08/14/21 12:07 Source: patient Mode of arrival: Ambulatory History of Present Illness HPI Narrative: This is a 71-year-old male who presents to the emergency department complaining of right flank pain following his lithotripsy on 08/08/2021. This is patient's 3rd lithotripsy. Patient went to the walk-in clinic on 08/09/2021, was seen by myself there, started on lidocaine patches, Toradol q.8 hours, omeprazole, Flomax, Percocet, methocarbamol muscle spasms. Patient states that he has not felt ill, he denies any fever, vomiting or nausea, changes to his stool, he has tenderness to palpation in his right flank, he any urinary complaints other than ongoing hematuria. He denies any abdominal pain or pelvic pain. Dr. Nuñez is patient's urologist, he went to the clinic earlier today and Dr. Nuñez is not on- call today, he had a x-ray KUB, was sent over to the emergency department for evaluation from the clinic. Patient denies any recent fever, chills, difficulty urinating. Related Data Home Medications Medication Instructions Recorded Confirmed [OMEGA-3] 1 tab PO QDAY #0 02/04/17 08/09/21 phytonadione (vitamin K1) 5 mg 5 mg PO DAILY 11/16/19 08/09/21 tablet multivitamin 1 cap PO DAILY 01/18/20 08/09/21 B.coagulans-digestive enzym 10 1 tab PO DAILY 01/28/21 08/09/21 [Digest Adv Probio Plus Gas] folic acid 800 mcg tablet 1 mg PO .COMPLEX tab 01/28/21 08/09/21 methotrexate sodium 2.5 mg tablet 2.5 mg PO QWEEK 07/10/21 08/09/21 hydroxyzine HCl 25 mg tablet 25 mg PO DAILY 08/08/21 08/09/21 Previous Rx's Medication Instructions Recorded lamotrigine 100 mg tablet 200 mg PO QDAY #180 tab 10/02/20 risperidone 0.5 mg tablet 0.75 mg PO BEDTIME #135 tab 03/27/21 (Risperdal) ketorolac 10 mg tablet 10 mg PO Q8H PRN #20 tab 08/09/21 lidocaine 5 % topical patch 1 patch TOPICAL DAILY #15 ea 08/09/21 (Lidoderm) methocarbamol 500 mg tablet 500 mg PO TID PRN #20 tab 08/09/21 omeprazole 20 mg capsule,delayed 20 mg PO DAILY #14 cap 08/09/21 release oxycodone-acetaminophen 5 mg-325 1 tab PO Q8H PRN #14 tab 08/09/21 mg tablet (Percocet) tamsulosin 0.4 mg capsule (Flomax) 0.4 mg PO DAILY #10 cap 08/09/21 ketorolac 10 mg tablet 10 mg PO Q8H PRN #14 tab 08/14/21 lidocaine 5 % topical patch 1 patch TOPICAL DAILY PRN #15 ea 08/14/21 (Lidoderm) methocarbamol 500 mg tablet 500 mg PO BEDTIME PRN #14 tab 08/14/21 omeprazole 20 mg capsule,delayed 20 mg PO DAILY #20 cap 08/14/21 release oxycodone-acetaminophen 5 mg-325 1 tab PO Q8H PRN #14 tab 08/14/21 mg tablet (Percocet) prednisolone 5 mg tablet 5 mg PO DAILY 14 Days #14 tab 08/14/21 tamsulosin 0.4 mg capsule 0.4 mg PO BEDTIME 14 Days #14 cap 08/14/21 tamsulosin 0.4 mg capsule (Flomax) 0.4 mg PO DAILY #14 cap 08/14/21 Allergies Allergy/AdvReac Type Severity Reaction Status Date / Time No Known Drug Allergies Allergy Verified 08/14/21 11:31 Review of Systems <Brandie Gay [facility] - Last Filed: 08/14/21 14:41> Review of Systems Narrative: General: denies fever, chills Head/Neck: denies headache, neck pain Eyes: denies visual changes, eye pain Cardio: denies chest pain, palpitations Respiratory: denies shortness of breath, cough GI: denies abdominal pain, nausea, vomiting, or diarrhea, endorses right flank pain : denies dysuria, endorses hematuria and flank pain MSK: denies new joint pain, muscle weakness or swelling Skin: denies rash, itching or wound Neuro: denies numbness, tingling, dizziness Patient History <VENITA Moran - Last Filed: 08/14/21 14:41> Medical History Anal fissure Asymptomatic microscopic hematuria Cataracts, bilateral (~2015) Fractures (~2000) Herpes (~1969) High prostate specific antigen (PSA) History of kidney stones Preventative health care Psoriasis (~2015) Surgical History Anesthesia Cataract extraction status, right eye (05/19/21) History of eye surgery (~2015) History of lithotripsy (~1982) History of tonsillectomy Family History Father Cancer Brother Cancer Grandfather Flu Grandfather History of heart disease Hyperlipidemia Hypertension Social History household members: spouse Smoking Status: Former smoker alcohol intake: former Smoking Status: Former smoker alcohol intake frequency: holidays/special occasions only Substance Use Type: marijuana Exam <VENITA Moran - Last Filed: 08/14/21 14:41> Narrative Exam Narrative: Independently reviewed vitals signs and nursing notes. General: cooperative, comfortable, in no acute distress, well groomed Head: atraumatic, symmetrical facial expressions Neck: supple Eyes: equal round and reactive, EOMI, conjunctiva normal Nose: nares patent, no rhinorrhea Mouth/Throat: moist mucus membranes Cardiovascular: regular rate and rhythm, no peripheral edema, warm extremities Respiratory: normal effort, able to speak in complete sentences, no audible wheezing, stridor, or rales. No retractions or tachypnea. GI: abdomen soft, nontender to palpation, nondistended, no masses, no exquisite tenderness with exam, without guarding or rebound. MSK: moves all extremities, neurovascularly intact, no weakness, normal tone Skin: brisk capillary refill, no rash, no erythema Neuro: normal speech and cognition, A&O x3 Psych: mental status is grossly normal, congruent mood, normal affect, pleasant and cooperative Initial Vital Signs Initial Vital Signs: Vital Signs Temperature 98.8 F 08/14/21 11:26 Pulse Rate 63 08/14/21 11:26 Respiratory Rate 15 08/14/21 11:26 Blood Pressure 134/72 08/14/21 11:26 Pulse Oximetry 100 08/14/21 11:26 <Alayna Bah DO - Last Filed: 08/21/21 07:34> Initial Vital Signs Initial Vital Signs: Vital Signs Temperature 98.8 F 08/14/21 11:26 Pulse Rate 63 08/14/21 11:26 Respiratory Rate 15 08/14/21 11:26 Blood Pressure 134/72 08/14/21 11:26 Pulse Oximetry 100 08/14/21 11:26 Course <VENITA Moran - Last Filed: 08/14/21 14:41> Orders Ordered: Discontinued Medications Ceftriaxone Sodium (Ceftriaxone 2,000 Mg Vial) 1,000 mg IM NOW ONE Stop: 08/14/21 13:57 Last Admin: 08/14/21 14:36 Dose: 1,000 mg Documented by: ANNALEE Ketorolac Tromethamine (Ketorolac 30 Mg/Ml Vial) 15 mg IM NOW ONE Stop: 08/14/21 13:25 Last Admin: 08/14/21 13:34 Dose: 15 mg Documented by: ANNALEE Prednisone (Prednisone 20 Mg Tablet) 5 mg PO NOW ONE Stop: 08/14/21 13:17 Last Admin: 08/14/21 13:52 Dose: 5 mg Documented by: ANNALEE Trimethoprim/Sulfamethoxazole (Trimeth/Sulfa 160/800 (Ds) Tablet) 1 tab PO NOW ONE Stop: 08/14/21 13:54 Last Admin: 08/14/21 13:57 Dose: 1 tab Documented by: ANNALEE Vital Signs Vital signs: Vital Signs - 8 hr 08/14/21 11:26 Temperature 98.8 F Pulse Rate 63 Respiratory Rate 15 Blood Pressure 134/72 Pulse Oximetry 100 <Alayna Bah DO - Last Filed: 08/21/21 07:34> Orders Ordered: Discontinued Medications Ceftriaxone Sodium (Ceftriaxone 2,000 Mg Vial) 1,000 mg IM NOW ONE Stop: 08/14/21 13:57 Last Admin: 08/14/21 14:36 Dose: 1,000 mg Documented by: ANNALEE Ketorolac Tromethamine (Ketorolac 30 Mg/Ml Vial) 15 mg IM NOW ONE Stop: 08/14/21 13:25 Last Admin: 08/14/21 13:34 Dose: 15 mg Documented by: ANNALEE Prednisone (Prednisone 20 Mg Tablet) 5 mg PO NOW ONE Stop: 08/14/21 13:17 Last Admin: 08/14/21 13:52 Dose: 5 mg Documented by: ANNALEE Trimethoprim/Sulfamethoxazole (Trimeth/Sulfa 160/800 (Ds) Tablet) 1 tab PO NOW ONE Stop: 08/14/21 13:54 Last Admin: 08/14/21 13:57 Dose: 1 tab Documented by: ANNALEE Vital Signs Vital signs: Vital Signs - 8 hr 08/14/21 11:26 Temperature 98.8 F Pulse Rate 63 Respiratory Rate 15 Blood Pressure 134/72 Pulse Oximetry 100 MDM - Male Genitourinary <VENITA Moran - Last Filed: 08/14/21 14:41> Lab Data Result diagrams: 08/14/21 12:20 08/14/21 12:20 Labs: Lab Results 08/14/21 08/14/21 08/14/21 Range/Units 12:20 12:20 12:45 WBC 5.6 (4.5-11.0) X10^3/uL RBC 3.80 L (4.5-5.9) X10^6/uL Hgb 12.4 L (13.5-17.5) g/dL Hct 36.0 L (41-53) % MCV 94.9 (80-100) fL MCH 32.7 (26-34) PG MCHC 34.5 (30-36) % RDW 14.2 (11.6-14.8) % Plt Count 264 (150-400) X10^3/uL Neut % (Auto) 58.6 (50-75) % Lymph % (Auto) 30.3 (25-40) % [place] % (Auto) 7.8 (3-14) % Eos % (Auto) 2.7 (2-4) % Baso % (Auto) 0.6 (0-2) % Neut # (Auto) 3300 (2260-3474) /uL Lymph # (Auto) 1700 (8679-8478) /uL [place] # (Auto) 400 (0-900) /uL Eos # (Auto) 200 (0-450) /uL Baso # (Auto) 0 (0-100) /uL Sodium 137 (137-145) mmol/L Potassium 4.3 (3.4-5.1) mmol/L Chloride 106 (98-107) mmol/L Carbon Dioxide 29 (22-32) mmol/L BUN 17 (9-20) mg/dL Creatinine 0.84 (0.66-1.25) mg/dL Estimated GFR > 60 (>60) mL/min BUN/Creatinine Ratio 20.2 (6-22) Glucose 104 (80-110) mg/dL Calcium 8.7 (8.4-10.2) mg/dL Total Bilirubin 0.6 (0.2-1.3) mg/dL AST 27 (17-59) IU/L ALT 25 (<50) IU/L Alkaline Phosphatase 65 (38-126) U/L Total Protein 5.9 L (6.3-8.2) g/dL Albumin 3.4 L (3.5-5.0) g/dL Globulin 2.5 (1.7-4.1) g/dL Albumin/Globulin Ratio 1.4 (1.0-2.8) Urine Color Urine Appearance Urine pH (4.5-8.0) Ur Specific George (1.000-1.035) Urine Protein (Negative) Urine Glucose (UA) (Negative) g/dL Urine Ketones (NEGATIVE) Urine Occult Blood (Negative) Urine Nitrate (Negative) Urine Bilirubin (NEGATIVE) Urine Urobilinogen (0.2) E.U./dL Ur Leukocyte Esterase (NEGATIVE) Urine RBC 5-10/hpf H (0-5/HPF) Urine WBC 30-100/hpf H (0-5/HPF) Ur Squamous Epith Cells 0-1 /hpf (0-5/HPF) Urine Bacteria Few (2-10) H (None) Urine Mucus (Negative) Ur Culture Indicated? Culture not indicate 08/14/21 Range/Units 12:45 WBC (4.5-11.0) X10^3/uL RBC (4.5-5.9) X10^6/uL Hgb (13.5-17.5) g/dL Hct (41-53) % MCV (80-100) fL MCH (26-34) PG MCHC (30-36) % RDW (11.6-14.8) % Plt Count (150-400) X10^3/uL Neut % (Auto) (50-75) % Lymph % (Auto) (25-40) % [place] % (Auto) (3-14) % Eos % (Auto) (2-4) % Baso % (Auto) (0-2) % Neut # (Auto) (5358-4635) /uL Lymph # (Auto) (4297-1226) /uL [place] # (Auto) (0-900) /uL Eos # (Auto) (0-450) /uL Baso # (Auto) (0-100) /uL Sodium (137-145) mmol/L Potassium (3.4-5.1) mmol/L Chloride (98-107) mmol/L Carbon Dioxide (22-32) mmol/L BUN (9-20) mg/dL Creatinine (0.66-1.25) mg/dL Estimated GFR (>60) mL/min BUN/Creatinine Ratio (6-22) Glucose (80-110) mg/dL Calcium (8.4-10.2) mg/dL Total Bilirubin (0.2-1.3) mg/dL AST (17-59) IU/L ALT (<50) IU/L Alkaline Phosphatase (38-126) U/L Total Protein (6.3-8.2) g/dL Albumin (3.5-5.0) g/dL Globulin (1.7-4.1) g/dL Albumin/Globulin Ratio (1.0-2.8) Urine Color Yellow Urine Appearance Sl cloudy Urine pH 6.0 (4.5-8.0) Ur Specific [place] 1.025 (1.000-1.035) Urine Protein 2+ H (Negative) Urine Glucose (UA) Negative (Negative) g/dL Urine Ketones Negative (NEGATIVE) Urine Occult Blood 3+ H (Negative) Urine Nitrate Negative (Negative) Urine Bilirubin Negative (NEGATIVE) Urine Urobilinogen 0.2 (0.2) E.U./dL Ur Leukocyte Esterase Trace H (NEGATIVE) Urine RBC 10-30/hpf H (0-5/HPF) Urine WBC 10-30/hpf H (0-5/HPF) Ur Squamous Epith Cells None seen (0-5/HPF) Urine Bacteria Many (>30) H D (None) Urine Mucus 1+ H (Negative) Ur Culture Indicated? Specimen cultured Imaging Data CT scan - abdomen/pelvis: Radiologist's Impression: PROCEDURE:? CT KIDNEY URETER BLADDER (KUB) ? INDICATIONS:? rt flank pain, hx nephrolithiasis ? TECHNIQUE:? Axial sections were acquired from the lung bases to the pubic symphysis.? Coronal and sagittal reformats were performed.? For radiation dose reduction, the following was used: ?automated exposure control, adjustment of mA and/or kV according to patient size.? ? COMPARISON:? [facility], CT, CT ABDOMEN PELVIS WO/W CON, 07/16/2021, 11:22. ? FINDINGS: Image quality:? Excellent.? ? Lung bases:? Septal thickening in the lower lung thomason.? Heart size is normal. ? Solid organs:? Liver: The liver has no mass or intrahepatic biliary ductal dilatation. Biliary: The gallbladder has no gallstones, pericholecystic fluid, gallbladder wall thickening, or surrounding inflammatory change. Pancreas: The pancreas has no mass or ductal dilatation. There is no surrounding inflammation. Spleen: Normal size. There are no masses. Adrenals: No hypertrophy or nodules. Kidneys: No obstructive calculus or hydronephrosis.? No solid mass.? The left kidney has a 2.5 cm simple cyst.? The right kidney demonstrates mild hydronephrosis and the ureter is dilated measuring up to 7 mm.?There is no definite occluding stone, however in the distal ureter several hyperdense foci are seen, possibly small stones in the distal ureter at the UVJ.? CT urogram would be helpful if further evaluation is required.? ? Peritoneum and bowel:? The distal esophagus and stomach are normal.? The small bowel has a normal caliber and appearance. The terminal ileum is normal. The large bowel has a normal caliber and appearance.? The appendix is normal. No free fluid or air.? ? Nodes and vessels:? No retroperitoneal or mesenteric adenopathy by size criteria.? Aorta and inferior vena cava are normal in size.? ? Miscellaneous:? No abdominal wall mass or hernia. ? PELVIS:? Genitourinary:? The bladder has no wall thickening or mass. No bladder calci fications. ? Bones:? Degenerative disc disease at L4-5.? No vertebral body compression fractures.? ? IMPRESSION:? Mild right hydroureteronephrosis with the right ureter measuring 7 mm. Possible fragmented stones in the distal ureter at the UVJ.? CT urogram would be helpful if further evaluation is clinically indicated. ?? Dictated by: Liam Tadeo M.D. on 08/14/2021 at 12:58 ? ? Approved by: Liam Tadeo M.D. on 08/14/2021 at 13:04 ? MDM Narrative Medical decision making narrative: This is a 71-year-old male who is status post right lithotripsy on 08/08/[address] Nuñez who presents to the emergency department for ongoing right flank pain, tenderness to palpation, and spasms with shooting pain from his right flank. He endorses hematuria, denies any dysuria, bladder pressure, pelvic pressure or spasm, changes to his stool, denies any fever, chills, nausea, vomiting. Today on, right hydroureter nephrosis is visible with right ureter measuring 7 mm with possible fragmented stones in the distal ureter at the UVJ without measurements. The bladder wall has no thickening. Are reassuring, patient does not have any leukocytosis or left shift, his creatinine is stable at 0.81 GFR over 60 with BUN creatinine ratio 20.2, UA shows 2+ protein in cloudy urine, 3+ blood, trace of leukocyte esterase with rbc's wbc's, bacteria and mucus. Urine was sent for culture, consultation with on-call Urology at [facility] about patient's case who recommends continuing Flomax, treating with Toradol, supportive measures, and starting 5 mg prednisone daily until follow-up with Dr. Nuñez on 08/20/2021. Dr. Nuñez phoned and I spoke with him regarding patient's case, he would also like to treat his urine for infection, I had already started him on Bactrim, he recommended adding Rocephin IM today, he was given 1 g of Rocephin, 5 mg of prednisone, 15 mg of Toradol IM, lidocaine patch. He has scheduled follow-up, patient understands to return to the emergency department for fever, worsening pain, nausea vomiting, or chills. Patient is appropriate and amenable to discharge home. Vital signs are stable on repeat examination is unremarkable. Patient has been informed of results. Patient has been given strict return to ER precautions for any new or worsening symptoms. Patient understands to follow up closely with outpatient providers as instructed. Patient understands plan and agrees to discharge home. All questions and concerns answered at this time. <Alayna Reyesjordan, DO - Last Filed: 08/21/21 07:34> Lab Data Labs: Lab Results 08/14/21 08/14/21 08/14/21 Range/Units 12:20 12:20 12:45 WBC 5.6 (4.5-11.0) X10^3/uL RBC 3.80 L (4.5-5.9) X10^6/uL Hgb 12.4 L (13.5-17.5) g/dL Hct 36.0 L (41-53) % MCV 94.9 (80-100) fL MCH 32.7 (26-34) PG MCHC 34.5 (30-36) % RDW 14.2 (11.6-14.8) % Plt Count 264 (150-400) X10^3/uL Neut % (Auto) 58.6 (50-75) % Lymph % (Auto) 30.3 (25-40) % [place] % (Auto) 7.8 (3-14) % Eos % (Auto) 2.7 (2-4) % Baso % (Auto) 0.6 (0-2) % Neut # (Auto) 3300 (4946-2621) /uL Lymph # (Auto) 1700 (7426-0903) /uL [place] # (Auto) 400 (0-900) /uL Eos # (Auto) 200 (0-450) /uL Baso # (Auto) 0 (0-100) /uL Sodium 137 (137-145) mmol/L Potassium 4.3 (3.4-5.1) mmol/L Chloride 106 (98-107) mmol/L Carbon Dioxide 29 (22-32) mmol/L BUN 17 (9-20) mg/dL Creatinine 0.84 (0.66-1.25) mg/dL Estimated GFR > 60 (>60) mL/min BUN/Creatinine Ratio 20.2 (6-22) Glucose 104 (80-110) mg/dL Calcium 8.7 (8.4-10.2) mg/dL Total Bilirubin 0.6 (0.2-1.3) mg/dL AST 27 (17-59) IU/L ALT 25 (<50) IU/L Alkaline Phosphatase 65 (38-126) U/L Total Protein 5.9 L (6.3-8.2) g/dL Albumin 3.4 L (3.5-5.0) g/dL Globulin 2.5 (1.7-4.1) g/dL Albumin/Globulin Ratio 1.4 (1.0-2.8) Urine Color Urine Appearance Urine pH (4.5-8.0) Ur Specific [place] (1.000-1.035) Urine Protein (Negative) Urine Glucose (UA) (Negative) g/dL Urine Ketones (NEGATIVE) Urine Occult Blood (Negative) Urine Nitrate (Negative) Urine Bilirubin (NEGATIVE) Urine Urobilinogen (0.2) E.U./dL Ur Leukocyte Esterase (NEGATIVE) Urine RBC 5-10/hpf H (0-5/HPF) Urine WBC 30-100/hpf H (0-5/HPF) Ur Squamous Epith Cells 0-1 /hpf (0-5/HPF) Urine Bacteria Few (2-10) H (None) Urine Mucus (Negative) Ur Culture Indicated? Culture not indicate 08/14/21 Range/Units 12:45 WBC (4.5-11.0) X10^3/uL RBC (4.5-5.9) X10^6/uL Hgb (13.5-17.5) g/dL Hct (41-53) % MCV (80-100) fL MCH (26-34) PG MCHC (30-36) % RDW (11.6-14.8) % Plt Count (150-400) X10^3/uL Neut % (Auto) (50-75) % Lymph % (Auto) (25-40) % [place] % (Auto) (3-14) % Eos % (Auto) (2-4) % Baso % (Auto) (0-2) % Neut # (Auto) (8553-6278) /uL Lymph # (Auto) (1792-8608) /uL [place] # (Auto) (0-900) /uL Eos # (Auto) (0-450) /uL Baso # (Auto) (0-100) /uL Sodium (137-145) mmol/L Potassium (3.4-5.1) mmol/L Chloride (98-107) mmol/L Carbon Dioxide (22-32) mmol/L BUN (9-20) mg/dL Creatinine (0.66-1.25) mg/dL Estimated GFR (>60) mL/min BUN/Creatinine Ratio (6-22) Glucose (80-110) mg/dL Calcium (8.4-10.2) mg/dL Total Bilirubin (0.2-1.3) mg/dL AST (17-59) IU/L ALT (<50) IU/L Alkaline Phosphatase (38-126) U/L Total Protein (6.3-8.2) g/dL Albumin (3.5-5.0) g/dL Globulin (1.7-4.1) g/dL Albumin/Globulin Ratio (1.0-2.8) Urine Color Yellow Urine Appearance Sl cloudy Urine pH 6.0 (4.5-8.0) Ur Specific [place] 1.025 (1.000-1.035) Urine Protein 2+ H (Negative) Urine Glucose (UA) Negative (Negative) g/dL Urine Ketones Negative (NEGATIVE) Urine Occult Blood 3+ H (Negative) Urine Nitrate Negative (Negative) Urine Bilirubin Negative (NEGATIVE) Urine Urobilinogen 0.2 (0.2) E.U./dL Ur Leukocyte Esterase Trace H (NEGATIVE) Urine RBC 10-30/hpf H (0-5/HPF) Urine WBC 10-30/hpf H (0-5/HPF) Ur Squamous Epith Cells None seen (0-5/HPF) Urine Bacteria Many (>30) H D (None) Urine Mucus 1+ H (Negative) Ur Culture Indicated? Specimen cultured Discharge Plan Departure Patient Disposition: Home Clinical Impression: Hydroureteronephrosis, Complicated urinary tract infection Instructions: DI for Kidney Stones, DI for Urinary Tract Infection (UTI) Activity Restrictions/Additional Instructions: *You have been diagnosed with swelling and inflammation of your right ureter measuring 7 mm with fragmented stones distal ureter at the UVJ. Please start prednisone 5 mg daily for the next two weeks, continue Flomax for this same time, start taking Toradol tomorrow every 8 hours as needed for pain, you may also take Percocet as needed, please consider stool softener while taking these medications. I hope that you start feeling better soon, if you develop a fever, nausea, vomiting worsening pain beyond her medications at home, please come back to the emergency department for evaluation. Please stay hydrated, take your medications as prescribed. On additional testing appear urine it was found that there is bacteria causing a urinary infection and with inflammation around your ureter opted to start you on antibiotics to prevent this from getting worse. I hope you feel better soon. CONTROLLED SUBSTANCE DISCHARGE (Narcotic/benzodiazepine/Flexeril/Phenergan) 1. You have been prescribed narcotic medications, it does have acetaminophen/Tylenol/paracetamol in it, DO NOT TAKE MORE THAN 4,00mg in 24 hours of Tylenol. *Tramadol does not contain tylenol. 2. Please understand that we cannot provide further refills of narcotics, benzodiazepines or controlled substances through the ED and her pain management will need to be through your provider. 3. While on these medications you cannot drive or operate heavy machinery. 4. You cannot sign legal documents or perform any duties such as this. 5. As long as you are taking opiate pain medications he should also be taking a stool softener such as Colace, Dulcolax, MiraLAX or prune juice, to help avoid constipation. *What to do: *Please continue to take your regular medications as directed. [x ] New medication prescriptions sent to your pharmacy: [[facility]] [ ] New medication written as a paper prescription [ ] No new medications given *Please follow up with your primary care provider in 2-3 days, call for an appointment. Let them know you were seen in the Emergency Department and that we asked that you be seen for follow-up. We will electronically transmit a record of today's note if your PCP is in our system *If you do not have a primary care provider please contact [phone] to establish care with one of the [facility] primary care providers. *Return to Emergency Department if you should have any new, worsening or concerning symptoms, such as [fever greater than 101F, chills, worsening pain, persistent vomiting or other bothersome symptoms] Prescriptions: New tamsulosin [Flomax] 0.4 mg capsule 0.4 mg PO DAILY Qty: 14 0RF lidocaine [Lidoderm] 5 % adhesive patch,medicated 1 patch topical DAILY PRN (Reason: pain) Qty: 15 0RF Rx Instructions: leave on most painful area for up to 12 hrs methocarbamol 500 mg tablet 500 mg PO BEDTIME PRN (Reason: muscle spasm) Qty: 14 0RF oxycodone-acetaminophen [Percocet] 5-325 mg tablet 1 tab PO Q8H PRN (Reason: pain) Qty: 14 0RF prednisolone 5 mg tablet 5 mg PO DAILY 14 Days Qty: 14 0RF ketorolac 10 mg tablet 10 mg PO Q8H PRN (Reason: pain) Qty: 14 0RF omeprazole 20 mg capsule,delayed release(DR/EC) 20 mg PO DAILY Qty: 20 0RF Rx Instructions: Please take this medication 1st thing in the morning before any medications or food. tamsulosin 0.4 mg capsule 0.4 mg PO BEDTIME 14 Days Qty: 14 0RF Rx Instructions: For a total of 0.8 mg daily No Action oxycodone-acetaminophen [Percocet] 5-325 mg tablet 1 tab PO Q8H PRN (Reason: pain) Qty: 14 0RF tamsulosin [Flomax] 0.4 mg capsule 0.4 mg PO DAILY Qty: 10 0RF omeprazole 20 mg capsule,delayed release(DR/EC) 20 mg PO DAILY Qty: 14 0RF ketorolac 10 mg tablet 10 mg PO Q8H PRN (Reason: pain) Qty: 20 0RF Rx Instructions: take with food and water lidocaine [Lidoderm] 5 % adhesive patch,medicated 1 patch topical DAILY Qty: 15 0RF Rx Instructions: leave on most painful area for up to 12 hrs methocarbamol 500 mg tablet 500 mg PO TID PRN (Reason: muscle spasm) Qty: 20 0RF multivitamin Capsule 1 cap PO DAILY 0RF lamotrigine 100 mg tablet 200 mg PO QDAY Qty: 180 3RF Label Comments: bipolar phytonadione (vitamin K1) 5 mg tablet 5 mg PO DAILY 0RF folic acid 800 mcg tablet 1 mg PO .COMPLEX 0RF Rx Instructions: 1 mg PO daily except Mondays; B.coagulans-digestive enzym 10 [Digest Adv Probio Plus Gas] 1 tab PO DAILY 0RF risperidone [Risperdal] 0.5 mg tablet 0.75 mg PO BEDTIME Qty: 135 1RF [OMEGA-3] 1 tab PO QDAY Qty: 0 0RF hydroxyzine HCl 25 mg tablet 25 mg PO DAILY 0RF Rx Instructions: TAKE 1 TABLET BY MOUTH EVERY MORNING AND MAY TAKE ANOTHER 1/2-1 TABLET IN AFTERNOON IF NEEDED methotrexate sodium 2.5 mg tablet 2.5 mg PO QWEEK 0RF Referrals: Arrno Franz DO [Primary Care Provider] - <Alayna Bah DO - Last Filed: 08/21/21 07:34> Cosign ED Attending Cosignature Attestation: I was immediately available in the department for consultation. Documentation has been reviewed. Case was discussed with myself agree with current plan.
[2021-08-14 13:33] LABS: Appearance Urine UA SL CLOUDY; Bilirubin Urine UA NEGATIVE (NEGATIVE); Color Urine UA YELLOW; Glucose Urine UA NEGATIVE (Negative); Ketones Urine UA NEGATIVE (NEGATIVE); Leukocyte Esterase Urine UA TRACE (NEGATIVE); Nitrite Urine UA NEGATIVE (Negative); Occult Blood Urine UA 3+ (Negative); Protein Urine UA 2+ (Negative); Specific Gravity Urine UA 1.025 (1.000-1.035); Urobilinogen Urine UA 0.2 E.U./dL (0.2)
[2021-08-14] MEDS: KETOROLAC 30 MG/ML VIAL 15 MG IM (13:34)
[2021-08-14 13:49] LABS: Bacteria Urine Many (>30); RBC Urine 10-30/HPF (0-5/HPF); Squamous Epithelial Cell Urine None Seen (0-5/HPF); WBC Urine 10-30/HPF (0-5/HPF)
[2021-08-14 13:50] LABS: Culture Indicated Urine Specimen Cultured; Mucus Urine 1+ (Negative)
[2021-08-14] MEDS: predniSONE 20 MG TABLET 5 MG PO (13:52)
[2021-08-14] MEDS: TRIMETH/SULFA 160/800 (DS) TABLET 1 TAB PO (13:57)
[2021-08-14 14:19] VITALS: BP 125/79; PULSE 54; O2SAT 99
[2021-08-14] MEDS: cefTRIAXone 2,000 MG VIAL 1000 MG IM (14:36)
[2021-08-14 14:59] VITALS: BP 130/76; PULSE 56; RESP 16; O2SAT 99
== END 2021-08-14 15:00 | disposition home or self-care (01) ==
PROVIDERS: Emergency Provider Nurse Practitioner Critical Care Medicine; PCP Family Medicine
DX: N13.30 Unspecified hydronephrosis (principal); N39.0 Urinary tract infection, site not specified; R31.9 Hematuria, unspecified; N20.0 Calculus of kidney
CPT/HCPCS: 36415; 74018; 74176; 80053; 81001; 81015; 85025; 87086; 96372; 99284; J0696; J1885

== ENCOUNTER → 2021-09-09 13:26 | Outpatient (CLI) | payer MEDICARE, OTHER, SELFPAY ==
[2021-09-09 14:02] LABS: BUN Creatinine Ratio 28.2 (6-22); Blood Urea Nitrogen 24 mg/dL (9-20); Carbon Dioxide 29 mmol/L (22-32); Chloride 104 mmol/L (98-107); Estimated Glomerular Filt Rate > 60 mL/min (>60); Glucose 108 mg/dL (80-110); HEMOLYSIS < 15 (0-50); Potassium 4.3 mmol/L (3.4-5.1); Sodium 139 mmol/L (137-145)
== END ==
PROVIDERS: Urology; PCP Family Medicine; Referring Provider Physician Assistant; Visit Provider Physician Assistant
DX: L40.0 Psoriasis vulgaris (principal); R31.21 Asymptomatic microscopic hematuria
CPT/HCPCS: 36415; 80048

== ENCOUNTER → 2021-09-23 12:06 | Outpatient (CLI) | payer MEDICARE, OTHER, SELFPAY ==
[2021-09-23 13:55] LABS: Calcium 9.2 mg/dL (8.4-10.2); Uric Acid 4.4 mg/dL (3.5-8.5)
[2021-09-24 08:53] LABS: Parathyroid Hormone Int 48 pg/mL (15-65)
== END ==
PROVIDERS: PCP Family Medicine; Referring Provider Urology; Visit Provider Urology
DX: N20.0 Calculus of kidney (principal); N40.0 Benign prostatic hyperplasia without lower urinary tract symptoms
CPT/HCPCS: 36415; 81002; 82310; 83970; 84550; 99213

== ENCOUNTER → 2022-02-18 10:47 | Outpatient (CLI) | payer MEDICARE, OTHER, SELFPAY ==
--- NOTE | 2022-02-18 10:51 | DI.RAD.S_ITS ---
PROCEDURE: XR KUB INDICATIONS: Kidney stones TECHNIQUE: One view of the abdomen acquired. COMPARISON: [facility], CR, XR KUB, 08/14/2021, 10:59. FINDINGS: Surgical changes and devices: None. Bowel: Bowel gas pattern is normal. Soft tissues: No definite intrarenal calculi. Numerous pelvic phleboliths bilaterally. No new suspicious pelvic calculus the organ shadows are normal. There is scarring at the left lung base. Bones: No suspicious bony lesions. IMPRESSION: 1. No definite urinary calculi. Dictated by: Itzel Hernández M.D. on 02/18/2022 at 16:39 Approved by: Itzel Hernández M.D. on 02/18/2022 at 16:41
== END ==
PROVIDERS: PCP Family Medicine; Referring Provider Urology; Visit Provider Urology
DX: N20.0 Calculus of kidney (principal)
CPT/HCPCS: 74018

== ENCOUNTER → 2022-03-11 13:47 | Outpatient (CLI) | payer MEDICARE, OTHER, SELFPAY ==
[2022-03-11 15:43] LABS: Add Manual Diff / Slide Review NO; Basophils Absolute Auto 100 /uL (0-100); Basophils Percent Auto 0.7 % (0-2); Eosinophils Absolute Auto 300 /uL (0-450); Eosinophils Percent Auto 3.7 % (2-4); Hematocrit 41.8 % (41-53); Hemoglobin 14.2 g/dL (13.5-17.5); Lymphocytes Absolute Auto 2200 /uL (1100-4500); Lymphocytes Percent Auto 28.7 % (25-40); Mean Corpuscular HGB Conc 33.9 % (30-36); Mean Corpuscular Hemoglobin 32.1 PG (26-34); Mean Corpuscular Volume 94.7 fL (80-100); Monocytes Absolute Auto 600 /uL (0-900); Monocytes Percent Auto 7.6 % (3-14); Neutrophils Absolute Auto 4500 /uL (1500-7000); Neutrophils Percent Auto 59.3 % (50-75); Platelet Count 290 X10^3/uL (150-400); Red Blood Cell Count 4.42 X10^6/uL (4.5-5.9); Red Cell Distribution Width 13.7 % (11.6-14.8); White Blood Cell Count 7.5 X10^3/uL (4.5-11.0)
[2022-03-11 16:13] LABS: Alanine Aminotransferase 23 IU/L (<50); Albumin 4.3 g/dL (3.5-5.0); Albumin Globulin Ratio 1.7 (1.0-2.8); Alkaline Phosphatase 87 U/L (38-126); Aspartate Aminotransferase 24 IU/L (17-59); BUN Creatinine Ratio 30.3 (6-22); Bilirubin Total 0.6 mg/dL (0.2-1.3); Bilirubin Unconjugated 0.6 mg/dL (0.0-1.1); Blood Urea Nitrogen 23 mg/dL (9-20); Carbon Dioxide 27 mmol/L (22-32); Chloride 102 mmol/L (98-107); Estimated Glomerular Filt Rate > 60 mL/min (>60); Globulin 2.5 g/dL (1.7-4.1); Glucose 97 mg/dL (80-110); HEMOLYSIS < 15 (0-50); Potassium 4.3 mmol/L (3.4-5.1); Sodium 137 mmol/L (137-145); Total Protein 6.8 g/dL (6.3-8.2)
== END ==
PROVIDERS: PCP Family Medicine; Referring Provider Physician Assistant; Visit Provider Physician Assistant
DX: L40.0 Psoriasis vulgaris (principal)
CPT/HCPCS: 36415; 80048; 80076; 85025

== ENCOUNTER → 2022-08-03 11:47 | Outpatient (CLI) | payer MEDICARE, SELFPAY ==
[2022-08-03 13:17] LABS: Add Manual Diff / Slide Review NO; Basophils Absolute Auto 100 /uL (0-100); Basophils Percent Auto 1.2 % (0-2); Eosinophils Absolute Auto 200 /uL (0-450); Eosinophils Percent Auto 3.5 % (2-4); Hematocrit 41.7 % (41-53); Hemoglobin 14.2 g/dL (13.5-17.5); Lymphocytes Absolute Auto 1700 /uL (1100-4500); Lymphocytes Percent Auto 29.9 % (25-40); Mean Corpuscular HGB Conc 34.2 % (30-36); Mean Corpuscular Hemoglobin 32.9 PG (26-34); Mean Corpuscular Volume 96.2 fL (80-100); Monocytes Absolute Auto 400 /uL (0-900); Monocytes Percent Auto 6.9 % (3-14); Neutrophils Absolute Auto 3400 /uL (1500-7000); Neutrophils Percent Auto 58.5 % (50-75); Platelet Count 313 X10^3/uL (150-400); Red Blood Cell Count 4.33 X10^6/uL (4.5-5.9); Red Cell Distribution Width 14.4 % (11.6-14.8); White Blood Cell Count 5.8 X10^3/uL (4.5-11.0)
[2022-08-03 13:35] LABS: Alanine Aminotransferase 21 IU/L (<50); Albumin 4.2 g/dL (3.5-5.0); Albumin Globulin Ratio 1.8 (1.0-2.8); Alkaline Phosphatase 78 U/L (38-126); Aspartate Aminotransferase 24 IU/L (17-59); BUN Creatinine Ratio 25.6 (6-22); Bilirubin Total 0.6 mg/dL (0.2-1.3); Blood Urea Nitrogen 20 mg/dL (9-20); Calcium 9.3 mg/dL (8.4-10.2); Carbon Dioxide 28 mmol/L (22-32); Chloride 105 mmol/L (98-107); Estimated Glomerular Filt Rate > 60 mL/min (>60); Globulin 2.3 g/dL (1.7-4.1); Glucose 97 mg/dL (80-110); HEMOLYSIS < 15 (0-50); Potassium 4.6 mmol/L (3.4-5.1); Sodium 139 mmol/L (137-145); Total Protein 6.5 g/dL (6.3-8.2)
[2022-08-03 14:04] LABS: Prostate Specific Antigen Scrn 4.95 ng/mL (0.1-4.0)
== END ==
PROVIDERS: PCP Family Medicine; Referring Provider Physician Assistant; Visit Provider Physician Assistant
DX: Z00.00 Encounter for general adult medical examination without abnormal findings (principal); L40.0 Psoriasis vulgaris; Z12.5 Encounter for screening for malignant neoplasm of prostate; Z79.899 Other long term (current) drug therapy; F31.9 Bipolar disorder, unspecified; L40.9 Psoriasis, unspecified; N40.0 Benign prostatic hyperplasia without lower urinary tract symptoms
CPT/HCPCS: 36415; 80053; 85025; G0103

== ENCOUNTER → 2022-09-09 11:20 | Outpatient (CLI) | payer MEDICARE, SELFPAY ==
--- NOTE | 2022-09-09 11:22 | DI.RAD.S_ITS ---
PROCEDURE: XR KUB INDICATIONS: History of kidney stones TECHNIQUE: One view of the abdomen acquired. COMPARISON: [facility], CR, XR KUB, 02/18/2022, 10:55. FINDINGS: Surgical changes and devices: None. Bowel: Bowel gas pattern is nonobstructive. Significant colonic stool. Soft tissues: No suspicious abdominal calcifications. However, renal shadows are significantly obscured secondary to overlying prominent colonic stool. Visualized solid organ contours appear normal in size. Bones: No suspicious bony lesions. IMPRESSION: Significant colonic stool consistent constipation. Renal shadows are incompletely visualized secondary to significant overlying stool filled colon. Dictated by: Monika Gregory M.D. on 09/09/2022 at 15:45 Approved by: Monika Gregory M.D. on 09/09/2022 at 15:46
== END ==
PROVIDERS: PCP Family Medicine; Referring Provider Urology; Visit Provider Urology
DX: N20.0 Calculus of kidney (principal)
CPT/HCPCS: 74018

== ENCOUNTER → 2022-09-11 10:31 | Outpatient (CLI) | payer MEDICARE, SELFPAY ==
[2022-09-14 17:06] LABS: PSA Free % 21.1 % (.); PSA, Total 6.5 ng/mL (0.0-4.0)
== END ==
PROVIDERS: PCP Family Medicine; Referring Provider Urology; Visit Provider Urology
DX: R97.20 Elevated prostate specific antigen [PSA] (principal)
CPT/HCPCS: 36415; 84153; 84154

== ENCOUNTER 2022-09-18 17:50 | Emergency (ER) | payer MEDICARE, SELFPAY ==
[2022-09-18 17:56] VITALS: BP 141/82; PULSE 66; RESP 14; TEMP 36.6; O2SAT 96
--- NOTE | 2022-09-18 18:04 | DI.RAD.S_ITS ---
PROCEDURE: XR CHEST 1V INDICATIONS: chest pain TECHNIQUE: One view of the chest was acquired. COMPARISON: [facility], , CHEST 2 VIEW, 10/29/2006, 19:16. FINDINGS: Surgical changes and devices: None. Lungs and pleura: Lungs are hyperexpanded and clear apart from chronic scarring at the left lung base. No pleural effusions or pneumothorax. Mediastinum: Mediastinal contours appear normal. Heart size is normal. Bones and chest wall: No suspicious bony lesions. Overlying soft tissues appear unremarkable. Chronic posttraumatic findings noted in the left scapula. Healed left-sided rib fractures are noted. IMPRESSION: No acute cardiopulmonary abnormality. Approved by: Julian Lechuga M.D. on 09/18/2022 at 18:47
[2022-09-18 18:38] LABS: Add Manual Diff / Slide Review NO; Basophils Absolute Auto 100 /uL (0-100); Eosinophils Absolute Auto 200 /uL (0-450); Hematocrit 41.1 % (41-53); Hemoglobin 14.1 g/dL (13.5-17.5); Lymphocytes Absolute Auto 2200 /uL (1100-4500); Lymphocytes Percent Auto 27.2 % (25-40); Mean Corpuscular HGB Conc 34.4 % (30-36); Mean Corpuscular Hemoglobin 33.1 PG (26-34); Mean Corpuscular Volume 96.3 fL (80-100); Monocytes Absolute Auto 700 /uL (0-900); Monocytes Percent Auto 8.4 % (3-14); Neutrophils Absolute Auto 4900 /uL (1500-7000); Neutrophils Percent Auto 60.4 % (50-75); Platelet Count 198 X10^3/uL (150-400); Red Blood Cell Count 4.27 X10^6/uL (4.5-5.9); White Blood Cell Count 8.1 X10^3/uL (4.5-11.0)
[2022-09-18 18:40] LABS: PTT Partial Thromboplastin Tim 25 SECONDS (26-36)
[2022-09-18 18:47] LABS: Alanine Aminotransferase 20 IU/L (<50); Albumin 4.1 g/dL (3.5-5.0); Albumin Globulin Ratio 1.5 (1.0-2.8); Alkaline Phosphatase 86 U/L (38-126); Aspartate Aminotransferase 27 IU/L (17-59); Bilirubin Total 0.7 mg/dL (0.2-1.3); Blood Urea Nitrogen 24 mg/dL (9-20); Carbon Dioxide 27 mmol/L (22-32); Chloride 100 mmol/L (98-107); Creatine Kinase 52 U/L (55-170); Estimated Glomerular Filt Rate > 60 mL/min (>60); Globulin 2.7 g/dL (1.7-4.1); Glucose 91 mg/dL (80-110); HEMOLYSIS 33 (0-50); Lipase 65 U/L (23-300); Magnesium 2.1 mg/dL (1.6-2.3); Potassium 3.8 mmol/L (3.4-5.1); Sodium 134 mmol/L (137-145); Total Protein 6.8 g/dL (6.3-8.2)
[2022-09-18 18:59] LABS: Troponin I < 0.012 ng/mL (0.01-0.034)
[2022-09-18 19:52] VITALS: BP 132/73; PULSE 60; RESP 18; O2SAT 98
[2022-09-18 21:25] LABS: Troponin I < 0.012 ng/mL (0.01-0.034)
--- NOTE | 2022-09-18 23:43 | ED.DIZZY ---
HPI - Dizziness General Chief Complaint: Dizziness Stated Complaint: Thinks had heart attack and aneurysm t-1 Time Seen by Provider: 09/18/22 23:42 Source: patient Mode of arrival: Ambulatory History of Present Illness HPI Narrative: Patient is a 72-year-old male with history of psoriasis presenting today with dizziness. He reports that last night he was sitting in his chair he went to stand up he had significant vertigo and dizziness and needed to sit back down. He was able to get it to subside in a sitting position however whenever he stood up got extremely dizzy lightheaded. He needed to lay down on the floor at which point he felt he was diaphoretic with possible chest pain. Symptoms all subsided he was able to crawl up the stairs and into bed with symptoms off and on. He went to sleep and today woke up feeling in his normal state of health. He is not had any recurrence episode today. He is not had any numbness tingling or weakness no headache chest pain palpitations or other symptoms. He reports that many years ago he did have an episode of vertigo he was prescribed medication but he did not take any. Related Data Home Medications Medication Instructions Recorded Confirmed [OMEGA-3] 1 tab PO QDAY ##0 02/04/17 06/02/22 multivitamin 1 cap PO DAILY 01/18/20 06/02/22 B.coagulans-digestive enzym 10 1 tab PO DAILY 01/28/21 06/02/22 [Digest Adv Probio Plus Gas] methotrexate sodium 2.5 mg tablet 2.5 mg PO QWEEK 07/10/21 06/02/22 Previous Rx's Medication Instructions Recorded risperidone 0.5 mg tablet 0.75 mg PO BEDTIME #135 tabs 06/11/22 (Risperdal) folic acid 1 mg tablet See Rx Instructions .Route 07/07/22 .COMPLEX #90 tabs hydroxyzine HCl 25 mg tablet See Rx Instructions .Route 07/07/22 .COMPLEX #180 tabs lamotrigine 100 mg tablet See Rx Instructions .Route 07/07/22 .COMPLEX #90 tabs meclizine 25 mg tablet 25 mg PO TID PRN dizziness #10 tabs 09/18/22 Allergies Allergy/AdvReac Type Severity Reaction Status Date / Time No Known Drug Allergies Allergy Verified 09/18/22 18:03 Review of Systems Review of Systems ROS Unobtainable: All systems reviewed & are unremarkable except as noted in HPI and below Patient History Medical History Anal fissure Asymptomatic microscopic hematuria Calcium oxalate kidney stones Cataracts, bilateral (~2015) Fractures (~2000) Herpes (~1969) High prostate specific antigen (PSA) History of kidney stones Kidney stones Preventative health care Psoriasis (~2015) Surgical History Anesthesia Cataract extraction status, right eye (05/19/21) History of eye surgery (~2015) History of lithotripsy (~1982) History of tonsillectomy Family History Father Cancer Brother Cancer Grandfather Flu Grandfather History of heart disease Hyperlipidemia Hypertension Social History household members: spouse Smoking Status: Former smoker alcohol intake: former Smoking Status: Former smoker alcohol intake frequency: holidays/special occasions only Substance Use Type: marijuana Exam Initial Vital Signs Initial Vital Signs: Vital Signs Temperature 98 F 09/18/22 17:56 Pulse Rate 66 09/18/22 17:56 Respiratory Rate 14 09/18/22 17:56 Blood Pressure 141/82 H 09/18/22 17:56 Pulse Oximetry 96 09/18/22 17:56 Oxygen Delivery Method Room Air 09/18/22 17:56 GENERAL: Alert well-appearing 72-year-old male and in no acute distress. HEENT: Head atraumatic,EOMI, pupils reactive, face symmetric, moist mucous membranes CARDIOVASCULAR: Regular rate and rhythm without murmurs, rubs or gallops. RESPIRATORY: Breath sounds equal bilaterally, no wheezes rales or rhonchi. ABDOMEN: Soft, nontender. Normoactive bowel sounds all 4 quadrants. No guarding or rebound. EXTREMITIES: Normal range of motion, no clubbing or edema. Neurovascularly intact NEUROLOGICAL: Alert and oriented x4.Normal gait and speech. Show Design Supervisor strength equal bilaterally no weakness SKIN: Warm, dry, no laceration, no petechiae, no rashes or lesions. Scores NIH Stroke Scale Level of Conciousness: Alert, keenly responsive Ask month/age: Answers both questions correctly. Open/close eyes, close hand: Performs both tasks correctly Best gaze horizontal: Normal Visual thomasno: No visual loss Facial palsy: Normal symetrical movement Left arm drift: No drift for full 10 sec Right arm drift: No drift for full 10 sec Left leg drift: No drift for full 5 sec Right leg drift: No drift for full 5 sec Limb ataxia: Absent Sensory on face/arms/legs: Normal, no sensory loss Best language: No aphasia, normal Dysarthria: Normal Extinction or inattention: No abnormality Total NIH Stroke scale score: 0 Course Orders Ordered: ED Orders 09/18/22 20:50 Troponin I Stat Vital Signs Vital signs: Vital Signs - 8 hr 09/19/22 00:06 Temperature 97.4 F L Pulse Rate 72 Respiratory Rate 16 Blood Pressure 134/78 Pulse Oximetry 98 Oxygen Delivery Method Room Air MDM - Dizziness Lab Data 09/18/22 18:20 09/18/22 18:20 Labs: Lab Results 09/18/22 09/18/22 09/18/22 Range/Units 18:20 18:20 18:20 WBC 8.1 (4.5-11.0) X10^3/uL RBC 4.27 L (4.5-5.9) X10^6/uL Hgb 14.1 (13.5-17.5) g/dL Hct 41.1 (41-53) % MCV 96.3 (80-100) fL MCH 33.1 (26-34) PG MCHC 34.4 (30-36) % RDW 14.0 (11.6-14.8) % Plt Count 198 (150-400) X10^3/uL Neut % (Auto) 60.4 (50-75) % Lymph % (Auto) 27.2 (25-40) % [place] % (Auto) 8.4 (3-14) % Eos % (Auto) 3.0 (2-4) % Baso % (Auto) 1.0 (0-2) % Neut # (Auto) 4900 (5976-2279) /uL Lymph # (Auto) 2200 (8536-7246) /uL [place] # (Auto) 700 (0-900) /uL Eos # (Auto) 200 (0-450) /uL Baso # (Auto) 100 (0-100) /uL PT 11.0 (10.1-12.7) SECONDS INR 1.0 (0.9-1.3) APTT 25 L (26-36) SECONDS Sodium 134 L (137-145) mmol/L Potassium 3.8 (3.4-5.1) mmol/L Chloride 100 (98-107) mmol/L Carbon Dioxide 27 (22-32) mmol/L BUN 24 H (9-20) mg/dL Creatinine 0.75 (0.66-1.25) mg/dL Estimated GFR > 60 (>60) mL/min BUN/Creatinine Ratio 32.0 H (6-22) Glucose 91 (80-110) mg/dL Calcium 9.0 (8.4-10.2) mg/dL Magnesium 2.1 (1.6-2.3) mg/dL Total Bilirubin 0.7 (0.2-1.3) mg/dL AST 27 (17-59) IU/L ALT 20 (<50) IU/L Alkaline Phosphatase 86 (38-126) U/L Total Creatine Kinase 52 L (55-170) U/L CK-MB (CK-2) TNP CK-MB (CK-2) Rel Index TNP Troponin I < 0.012 (0.01-0.034) ng/mL Total Protein 6.8 (6.3-8.2) g/dL Albumin 4.1 (3.5-5.0) g/dL Globulin 2.7 (1.7-4.1) g/dL Albumin/Globulin Ratio 1.5 (1.0-2.8) Lipase 65 (23-300) U/L 09/18/22 Range/Units 20:50 WBC (4.5-11.0) X10^3/uL RBC (4.5-5.9) X10^6/uL Hgb (13.5-17.5) g/dL Hct (41-53) % MCV (80-100) fL MCH (26-34) PG MCHC (30-36) % RDW (11.6-14.8) % Plt Count (150-400) X10^3/uL Neut % (Auto) (50-75) % Lymph % (Auto) (25-40) % [place] % (Auto) (3-14) % Eos % (Auto) (2-4) % Baso % (Auto) (0-2) % Neut # (Auto) (3021-1127) /uL Lymph # (Auto) (4304-1228) /uL [place] # (Auto) (0-900) /uL Eos # (Auto) (0-450) /uL Baso # (Auto) (0-100) /uL PT (10.1-12.7) SECONDS INR (0.9-1.3) APTT (26-36) SECONDS Sodium (137-145) mmol/L Potassium (3.4-5.1) mmol/L Chloride (98-107) mmol/L Carbon Dioxide (22-32) mmol/L BUN (9-20) mg/dL Creatinine (0.66-1.25) mg/dL Estimated GFR (>60) mL/min BUN/Creatinine Ratio (6-22) Glucose (80-110) mg/dL Calcium (8.4-10.2) mg/dL Magnesium (1.6-2.3) mg/dL Total Bilirubin (0.2-1.3) mg/dL AST (17-59) IU/L ALT (<50) IU/L Alkaline Phosphatase (38-126) U/L Total Creatine Kinase (55-170) U/L CK-MB (CK-2) CK-MB (CK-2) Rel Index Troponin I < 0.012 (0.01-0.034) ng/mL Total Protein (6.3-8.2) g/dL Albumin (3.5-5.0) g/dL Globulin (1.7-4.1) g/dL Albumin/Globulin Ratio (1.0-2.8) Lipase (23-300) U/L Imaging Data Chest x-ray: Radiologist's Impression: PROCEDURE:? XR CHEST 1V ? INDICATIONS:? chest pain ? TECHNIQUE:? One view of the chest was acquired.? ? COMPARISON:? [facility], , CHEST 2 VIEW, 10/29/2006, 19:16. ? FINDINGS:? ? Surgical changes and devices:? None.? ? Lungs and pleura:? Lungs are hyperexpanded and clear apart from chronic scarring at the left lung base.? No pleural effusions or pneumothorax.? ? Mediastinum:? Mediastinal contours appear normal.? Heart size is normal.? ? Bones and chest wall:? No suspicious bony lesions.? Overlying soft tissues appear unremarkable.? Chronic posttraumatic findings noted in the left scapula.? Healed left-sided rib fractures are noted. ? IMPRESSION:? No acute cardiopulmonary abnormality.? Approved by: Julian Lechuga M.D. on 09/18/2022 at 18:47? ECG Data Interpretation: Normal sinus rhythm rate 75 NM interval 240 QRS [address] changes no T-wave inversions similar to previous EKG in 2017 MDM Narrative Medical decision making narrative: Patient 72-year-old male history of psoriasis presenting today with an episode of vertigo last evening. Sounds as though he had quite a severe episode waxed and weighing worse with position able to sleep last night now feeling better. No focal deficits today blood work is overall reassuring without any clinic call significance. EKGs it within normal limits. No evidence of infection. Neurovascularly intact no need for head CT. He has a prior history of vertigo this seems similar. At this time there is no indication for any further workup or admission. Patient is ready to go home. Discharge Plan Departure Patient Disposition: Home Clinical Impression: Vertigo Instructions: DI for Vertigo Activity Restrictions/Additional Instructions: *You have been diagnosed with vertigo *What to do: At this time blood work is reassuring. You likely had an episode of vertigo. Please go home and rest. *Continue to take medications as directed Meclizine 25 mg every 8 hours if needed for dizziness --> [facility] *Follow up with your primary care provider in 2-3 days or call [phone] *Return to ER if you should have increasing dizziness numbness tingling weakness chest pain palpitations passing out [or] any new, worsening or concerning symptoms Prescriptions: New meclizine 25 mg tablet 25 mg PO TID PRN (Reason: dizziness) Qty: 10 0RF No Action multivitamin Capsule 1 cap PO DAILY B.coagulans-digestive enzym 10 [Digest Adv Probio Plus Gas] 1 tab PO DAILY [OMEGA-3] 1 tab PO QDAY Qty: 0 risperidone [Risperdal] 0.5 mg tablet 0.75 mg PO BEDTIME Qty: 135 2RF lamotrigine 100 mg tablet See Rx Instructions .ROUTE .COMPLEX Qty: 90 1RF Dose Instruction: TAKE 2 TABLETS (200 MG) BY MOUTH DAILY Rx Instructions: TAKE 2 TABLETS (200 MG) BY MOUTH DAILY hydroxyzine HCl 25 mg tablet See Rx Instructions .ROUTE .COMPLEX Qty: 180 0RF Dose Instruction: TAKE 1 TABLET BY MOUTH EVERY MORNING AND MAY TAKE ANOTHER 1/2-1 TABLET IN AFTERNOON IF NEEDED Rx Instructions: TAKE 1 TABLET BY MOUTH EVERY MORNING AND MAY TAKE ANOTHER 1/2-1 TABLET IN AFTERNOON IF NEEDED folic acid 1 mg tablet See Rx Instructions .ROUTE .COMPLEX Qty: 90 0RF Dose Instruction: TAKE 1 TABLET BY MOUTH EVERY DAY Rx Instructions: TAKE 1 TABLET BY MOUTH EVERY DAY methotrexate sodium 2.5 mg tablet 2.5 mg PO QWEEK Referrals: Arron Franz, [Primary Care Provider] - Stand Alone Forms: Patient Portal/API
[2022-09-19 00:06] VITALS: BP 134/78; PULSE 72; RESP 16; TEMP 36.3; O2SAT 98
== END 2022-09-19 00:08 | disposition home or self-care (01) ==
PROVIDERS: Emergency Medicine; Emergency Provider Emergency Medicine; PCP Family Medicine
DX: R42 Dizziness and giddiness (principal); R07.9 Chest pain, unspecified
CPT/HCPCS: 36415; 71045; 80053; 82550; 83690; 83735; 84484; 85025; 85610; 85730; 93005; 99283; 99284

== ENCOUNTER → 2022-10-16 11:32 | Outpatient (CLI) | payer MEDICARE, SELFPAY ==
--- NOTE | 2022-10-16 11:33 | DI.MRI.S_ITS ---
PROCEDURE: MR PELVIC PROSTATE PROTOCOL INDICATIONS: Elevated and rising PSA TECHNIQUE: Coronal HASTE, axial T1 FSE with fat saturation, 3-plane nonbreath-hold T2 FSE. After the administration of contrast, dynamic axial, delayed axial and coronal VIBE or 2-D FLASH with fat saturation through the pelvis. Optional diffusion weighted imaging and ADC may be performed. COMPARISON: None. FINDINGS: Image quality: Diffusion weighted and dynamic contrast enhanced images are diagnostic. Prostate: Gland size is 5.6 x 3.9 x 4.5 cm; ellipsoid gland volume is 51 mL. There is nodularity in the transition zone without significant hypertrophy. Peripheral zone remains well preserved. Lesion one: Left lateral peripheral zone at the mid gland level contains indistinct area of T2 hypointensity measuring about 7 mm no distortion of the overlying capsule. T2 score three, diffusion score four, dynamic enhancement present, PI-RADS score four. Lesion two: Indistinct T2 hypointense focus at the same level in the posterolateral peripheral zone, mid gland, measures roughly 1.1 cm. T2 score three, diffusion score two, dynamic enhancement absent, PI-RADS score two. Genitourinary system: Bladder wall thickness is normal. Distal ureters are non distended. Bowel and peritoneum: No pathologic free pelvic fluid. Inferior colon and small bowel loops are normal in caliber. Nodes and vessels: No pelvic or inguinal adenopathy by size criteria. Iliac vessels are normal in caliber. Soft tissues: No inguinal hernias. Bones: Marrow demonstrates normal overall signal, without lesions to suggest metastases. IMPRESSION: 1. There is a 0.7 cm PI-RADS four lesion in the left mid gland peripheral zone. 2. No suspicious adenopathy. Dictated by: Itzel Hernández M.D. on 10/16/2022 at 17:22 Approved by: Itzel Hernández M.D. on 10/16/2022 at 17:34
== END ==
PROVIDERS: PCP Family Medicine; Referring Provider Urology; Visit Provider Urology
DX: N42.9 Disorder of prostate, unspecified (principal); R97.20 Elevated prostate specific antigen [PSA]
CPT/HCPCS: 72197; A9579

== ENCOUNTER 2022-12-15 07:58 | Day surgery (SDC) | payer MEDICARE, SELFPAY ==
[2022-12-14 08:53] VITALS: BMI 20.3
[2022-12-15 08:25] VITALS: BP 122/80; PULSE 63; RESP 16; TEMP 36.1; O2SAT 97; BMI 20.3
[2022-12-15] MEDS: LACTATED RINGERS 1,000 ML 42 ML IV (08:43)
[2022-12-15] MEDS: ACETAMINOPHEN 325 MG TABLET 650 MG PO (08:45)
--- NOTE | 2022-12-15 08:52 | PM.PREOP ---
Pre-operative Note COVID-19 COVID-19 status: Not tested Criteria for continued procedure: Non-surgical alternatives not available or appropriate per current SOC Interval Note History & Physical reviewed/Exam performed by Physician: Yes Changes to H&P: No
[2022-12-15] MEDS: GENTAMICIN 80 MG in SODIUM CHLORIDE 0.9% 100 ML 102 MG IV (09:23)
--- NOTE | 2022-12-15 09:28 | SUR.OPER ---
Lithotomy on padded OR bed, head on pillow, arms secured on padded arm boards at <90 degrees abduction. Legs secured in padded yellow fins stirrups.
--- NOTE | 2022-12-15 09:32 | SUR.OPER ---
Equipment for case brought to the OR from the office by Rianna Banks RN.
--- NOTE | 2022-12-15 09:44 | P.OP_ITS ---
Procedure & Clinicians Procedure: Transrectal ultrasound needle biopsy of the prostate Same procedure as scheduled: Yes Indications: This 72-year-old male presents for transrectal ultrasound needle biopsy of the prostate. Patient had an elevated PSA had a prostate MRI which revealed a PI- RADS 4 lesion in the left mid peripheral prostate. Patient had an attempted transrectal ultrasound needle biopsy of the prostate in the office but he was unable to tolerate the procedure and so he is brought to the operating room to have the transrectal ultrasound needle biopsy of the prostate done under anesthesia. Surgeon: Girish Nuñez Click Yes if Unassisted: Yes Anesthesia Type: MAC +/- Operative Notes Findings: Seminal vesicles and ampulla vas in normal position configuration and echotexture. The bladder was partially filled and definitive comment can not be made but what was seen did appear to be normal. The outlined the prostate showed no evidence of extracapsular spread. There were multiple calcifications throughout the prostate. There was no true hypoechoic lesion. There were a few cyst within the prostate. The prostate at previously been measured on the MRI and the size of the prostate is recorded there. Biopsies were taken in the following fashion. There were 2 samples taken from the right mid, base, apex. On the left there were 2 samples taken from the base and apex and there were 4 samples taken from the left mid. The patient tolerated the procedure well. Closure Type: not applicable Specimen(s): other (Prostate core samples as noted above) Prosthetic devices, grafts, tissues, transplants, or devices: None Estimated Blood Loss (mL): 0 Blood products transfused: none Procedure in detail: Procedure in detail: After informed consent was obtained, the patient was identified and brought to the operating room. It was confirmed that the patient taken his oral antibiotics and participated in his bowel prep. The patient received 80 mg of gentamicin. Patient was placed in a supine position on the table where monitored anesthesia care was induced and maintained. Patient was then transitioned to low lithotomy position. The ultrasound probe was then inserted and periprostatic block with 2% lidocaine was performed. Time allowed for the block set up as serial images were taken through the transverse and longitudinal planes of the prostate with the findings as noted above. Biopsies were then taken in the pattern noted in the findings. Patient tolerated this well. And with the core samples taken the ultrasound probe was removed the patient was allowed to awakened transferred to the postanesthesia care unit for recovery where he will be discharged to home. There were no complications. Complications: none Post-operative Condition: stable Disposition: PACU Plan for aftercare: Patient is to follow up my office with the biopsy results to make future plans.
[2022-12-15 09:46] VITALS: BP 81/50; PULSE 52; RESP 12; TEMP 36.1; O2SAT 97
[2022-12-15 09:50] VITALS: BP 86/53; PULSE 50; RESP 16; O2SAT 98
[2022-12-15 09:53] VITALS: BP 97/67; PULSE 62; RESP 14; O2SAT 97
[2022-12-15 09:55] VITALS: BP 107/67; PULSE 60; RESP 15; O2SAT 97
[2022-12-15 10:17] VITALS: BP 113/73; PULSE 54; RESP 14; O2SAT 97
== END 2022-12-15 10:35 | disposition home or self-care (01) ==
PROVIDERS: PCP Family Medicine; Referring Provider Urology; Visit Provider Urology
PROC: (CPT 55700; principal; 2022-12-15 09:15)
DX: N42.89 Other specified disorders of prostate (principal); R97.20 Elevated prostate specific antigen [PSA]
CPT/HCPCS: 55700; 76942; J2250; J2704; J3010

== ENCOUNTER 2023-02-02 13:27 | Day surgery (SDC) | payer MEDICARE, SELFPAY ==
[2023-02-02] MEDS: LACTATED RINGERS 1,000 ML 42 ML IV (13:39)
[2023-02-02 13:44] VITALS: BP 127/82; PULSE 73; RESP 17; TEMP 36.7; O2SAT 97
--- NOTE | 2023-02-02 14:33 | PM.HP.1 ---
History of Present Illness History of Present Illness Date Patient Seen: 02/02/23 Time Patient Seen: 14:33 Chief complaint: [facility] Narrative: 72-year-old man here for screening colonoscopy. Last colonoscopy 2009 normal. No family history of intestinal malignancy. No abdominal pain unintentional weight loss blood per rectum. [facility] Medical History (Updated 12/25/22 @ 12:21 by Girish Nuñez MD) Prostate cancer Abnormal finding on imaging Encounter for Medicare annual wellness exam Well adult exam Vertigo Lower urinary tract symptoms Rising PSA level Calcium oxalate kidney stones Kidney stones History of kidney stones Asymptomatic microscopic hematuria Anal fissure High prostate specific antigen (PSA) Preventative health care Psoriasis (~2015) Fractures (~2000) Herpes (~1969) Cataracts, bilateral (~2015) Surgical History Cataract extraction status, right eye (05/19/21) Anesthesia History of eye surgery (~2015) History of lithotripsy (~1982) History of tonsillectomy Family History Father Cancer Brother Cancer Grandfather Flu Grandfather History of heart disease Hyperlipidemia Hypertension Social History household members: spouse Smoking Status: Former smoker alcohol intake: former Meds Home Medications and Allergies Home Medications Medication Instructions Recorded Confirmed Type [OMEGA-3] 1 tab PO QDAY ##0 02/04/17 12/15/22 History B.coagulans-digestive enzym 10 1 tab PO DAILY 01/28/21 02/02/23 History [Digest Adv Probio Plus Gas] methotrexate sodium 2.5 mg tablet 12.5 mg PO QWEEK 07/10/21 02/02/23 History folic acid 1 mg tablet See Rx Instructions .Route 10/05/22 02/02/23 Rx .COMPLEX #90 tabs lamotrigine 100 mg tablet See Rx Instructions .Route 10/05/22 02/02/23 Rx .COMPLEX #90 tabs levofloxacin 500 mg tablet 500 mg PO Q24H #3 tabs 12/14/22 12/15/22 Rx multivitamin 1 tab PO DAILY 12/14/22 02/02/23 History risperidone 0.5 mg tablet 0.5 mg PO BEDTIME 12/14/22 02/02/23 History (Risperdal) hydroxyzine HCl 25 mg tablet See Rx Instructions .Route 01/12/23 02/02/23 Rx .COMPLEX #180 tabs Allergies Allergy/AdvReac Type Severity Reaction Status Date / Time No Known Drug Allergies Allergy Verified 02/02/23 13:31 Exam Vital Signs (past 8 hours): - 02/02/23 13:44 Temperature 98.1 F Pulse Rate 73 Respiratory Rate 17 Blood Pressure 127/82 Pulse Oximetry 97 Oxygen Delivery Method Room Air Oxygen Delivery Method Room Air Narrative Exam Narrative: General adult man alert oriented no acute distress Chest nonlabored respiration Extremities warm well perfused Assessment & Plan Assessment & Plan narrative: The patient requires colorectal screening and colonoscopy is recommended. Technical details were discussed. Risks, benefits, alternatives explained. Risks including but not limited to myocardial infarction, aspiration, bleeding, pain, missed lesion, incomplete examination, need for further radiographic studies, colonic perforation, and need for major abdominal surgery were discussed. All questions were answered to their satisfaction, and they are in agreement with this plan.
[2023-02-02 14:56] VITALS: BP 115/81; PULSE 75; RESP 12; TEMP 36.6; O2SAT 96
[2023-02-02 15:01] VITALS: BP 123/73; PULSE 64; RESP 20; O2SAT 96
--- NOTE | 2023-02-02 15:04 | P.OP.COLON_ITS ---
Operative Date/Time/Diagnoses Date of procedure: 02/02/23 Time of procedure: 15:05 Pre-op diagnosis: Colorectal screening Post-op diagnosis: same Procedure & Clinicians Study performed: Colonoscopy Same procedure as scheduled: Yes Indications: Colorectal screening Surgeon: Rios Little Procedure Notes Procedure in detail: The history and physical was performed/updated and the patient is ASA class is 2. The procedure was discussed in detail with the patient. Potential risks complications including infection, bleeding, missed diagnosis, perforation, need for surgery, and were explained. Their questions were answered and informed consent was obtained. Patient was brought to the procedure room and placed standard monitoring equipment. The patient's vital signs were monitored continuously throughout the entire procedure. Prior to starting time-out was performed. The patient was placed in the left lateral recumbent position. Procedural sedation was administered by anesthesia. Examination began with a thorough inspection of the perianal area there was no evidence of fissures, fistulae, external hemorrhoids or cutaneous malignancy. The colonoscopy scope was then placed into the anal canal and was advanced to the cecum, which was identified by the ileocecal valve, the appendiceal orifice and the confluence of the taenia. The scope was then slowly withdrawn examining colon thoroughly in all directions, irrigating it of any residual stool. The scope was retroflexed within the rectum The patient tolerated the procedure well. They will be discharged once criteria are met. The prep was of good/excellent quality. The withdrawl time was 7 minutes. FINDINGS * No masses polyps or inflammation. * Tortuous distal colon. Required external pressure and stiffening of the scope Specimen(s): none sent Impression: Normal colonoscopy Post-procedure Plan for aftercare: No need for further colonoscopy unless symptomatic Disposition: same day surgery
[2023-02-02 15:07] VITALS: BP 135/82; PULSE 66; RESP 14; TEMP 36.4; O2SAT 98
== END 2023-02-02 15:40 | disposition home or self-care (01) ==
PROVIDERS: PCP Family Medicine; Referring Provider Surgery; Visit Provider Surgery
PROC: 0DJD8ZZ Inspection of Lower Intestinal Tract, Via Natural or Artificial Opening Endoscopic (ICD-10-PCS; CPT 45378; principal; 2023-02-02 14:30)
DX: Z12.11 Encounter for screening for malignant neoplasm of colon (principal)
CPT/HCPCS: G0121

== ENCOUNTER → 2023-03-05 12:48 | Outpatient (CLI) | payer MEDICARE, SELFPAY ==
[2023-03-08 23:27] LABS: PSA Free % 17.8 % (.); PSA, Total 4.1 ng/mL (0.0-4.0)
== END ==
PROVIDERS: PCP Family Medicine; Referring Provider Urology; Visit Provider Urology
DX: R97.20 Elevated prostate specific antigen [PSA] (principal)
CPT/HCPCS: 36415; 84153; 84154

== ENCOUNTER → 2023-03-24 09:33 | Outpatient (CLI) | payer MEDICARE, SELFPAY ==
--- NOTE | 2023-03-24 09:35 | DI.RAD.S_ITS ---
PROCEDURE: XR KUB INDICATIONS: Follow-up calcium oxalate kidney stones TECHNIQUE: One view of the abdomen acquired. COMPARISON: [facility], CR, XR KUB, 09/09/2022, 11:24. [facility], CR, XR KUB, 02/18/2022, 10:55. FINDINGS: Surgical changes and devices: None. Bowel: Bowel gas pattern is normal. Soft tissues: Right renal calcification over the hilum measuring 1.3 centimeters. The left kidney is obscured by bowel gas and stool. Visualized solid organ contours appear normal in size. Bones: No suspicious bony lesions. IMPRESSION: Right renal calcification projecting over the hilum measuring 1.3 centimeters. Left kidney is obscured by bowel gas and stool. Dictated by: Darren Ho M.D. on 03/24/2023 at 10:58 Approved by: Darren Ho M.D. on 03/24/2023 at 11:01
== END ==
PROVIDERS: PCP Family Medicine; Referring Provider Urology; Visit Provider Urology
DX: N20.0 Calculus of kidney (principal)
CPT/HCPCS: 74018

== ENCOUNTER → 2023-04-12 11:48 | Outpatient (CLI) | payer MEDICARE, SELFPAY ==
--- NOTE | 2023-04-12 11:49 | DI.CT.S_ITS ---
PROCEDURE: CT ABDOMEN PELVIS WO CON INDICATIONS: Evaluate kidney stone TECHNIQUE: Axial sections were acquired from the lung bases to the pubic symphysis. Coronal and sagittal reformats were performed. For radiation dose reduction, the following was used: automated exposure control, adjustment of mA and/or kV according to patient size. COMPARISON: [facility], CT, CT KIDNEY URETER BLADDER (KUB), 08/14/2021, 12:21. FINDINGS: Image quality: Diagnostic. Lower Chest: Emphysematous and chronic fibrotic lung changes. The partially visualized heart appears normal in size. URINARY: Right Kidney: Moderate right hydronephrosis with a large 17 x 7 mm stone in the proximal right ureter with ureterectasis and mild stranding around the renal pelvis. Another 3 mm calcific density at the level of the mid /lower ureters likely an atherosclerotic calcification as it was seen on prior study from 08/14/2021. Numerous phleboliths are also noted. Partially exophytic 3 cm simple appearing cystic structure of the left kidney appears unchanged in size since prior study from 08/14/2021. Right Ureter: As above Left Kidney: No stones or hydronephrosis Left Ureter: No hydroureter Bladder: Normal wall thickness. No stones. ABDOMEN: Liver: 1 cm cystic lesion of the caudate is incompletely evaluated no contrast. It appears unchanged from prior study from 2021. Gallbladder: Gallbladder is poorly visualized and likely very contracted. It is unclear if patient had prior history of cholecystectomy. Correlate with history. No calcified gallstones seen. Biliary ducts: No biliary dilation. Pancreas: No ductal dilation. Spleen: Size is within normal limits. Note is made of a 1 cm splenule. Adrenal Glands: No adrenal nodules. Stomach and Bowel: Normal colonic caliber, without significant wall thickening. Diverticulosis without evidence of diverticulitis. Peritoneum: No abnormal intraperitoneal fluid. No free air. Ventral Wall: No hernia. Abdominal Nodes: No enlarged retroperitoneal or mesenteric lymph nodes. Vessels: Aorta and inferior vena cava are normal in size. PELVIS: Pelvic Organs: Large calcifications in the enlarged prostate.. Pelvic Nodes: Unremarkable. Miscellaneous: No inguinal hernias are seen. Bones: Osteopenia. DJD at L4-L5. IMPRESSION: 1. Large stone measuring 17 x 7 mm in the proximal right ureter/collecting system causing moderate right hydronephrosis and proximal ureterectasis and proximal periureteric fat stranding. 2. Enlarged prostate with large calcifications 3. Diverticulosis without evidence of diverticulitis. 4. DJD of the spine, osteopenia Dictated by: Oleg Lux M.D. on 04/12/2023 at 16:34 Approved by: Oleg Lux M.D. on 04/12/2023 at 17:04
== END ==
PROVIDERS: PCP Family Medicine; Referring Provider Urology; Visit Provider Urology
DX: N20.0 Calculus of kidney (principal); R31.29 Other microscopic hematuria; N40.0 Benign prostatic hyperplasia without lower urinary tract symptoms; K57.90 Diverticulosis of intestine, part unspecified, without perforation or abscess without bleeding; M47.816 Spondylosis without myelopathy or radiculopathy, lumbar region; M85.88 Other specified disorders of bone density and structure, other site
CPT/HCPCS: 74176

== ENCOUNTER → 2023-04-23 10:41 | Outpatient (CLI) | payer MEDICARE, SELFPAY | PROVIDERS: PCP Family Medicine; Visit Provider Urology | DX: C61 Malignant neoplasm of prostate (principal); R31.21 Asymptomatic microscopic hematuria; R39.9 Unspecified symptoms and signs involving the genitourinary system; N20.2 Calculus of kidney with calculus of ureter | CPT/HCPCS: 81002; 87086; 99214 ==

== ENCOUNTER 2023-05-11 09:07 | Day surgery (SDC) | payer MEDICARE, SELFPAY ==
[2023-05-11] VITALS (8 sets, daily range): BP systolic 119–127; BP diastolic 64–81; PULSE 61–87; RESP 10–20; TEMP 36.1–36.3; O2SAT 96–98; BMI 24.6
[2023-05-11] MEDS: LACTATED RINGERS 1,000 ML 21 ML IV (09:33)
--- NOTE | 2023-05-11 09:54 | PM.PREOP ---
Pre-operative Note COVID-19 COVID-19 status: Not tested Interval Note History & Physical reviewed/Exam performed by Physician: Yes Changes to H&P: No
[2023-05-11] MEDS: CEFAZOLIN 2 GM/100 ML PREMIX 100 ML IV (10:20)
--- NOTE | 2023-05-11 10:31 | SUR.OPER ---
Lithotomy on padded OR bed, head on GEL DONUT , arms secured at patients side and padded. Legs secured in stirrups.
--- NOTE | 2023-05-11 11:13 | PM.OP.1 ---
Procedure & Clinicians Procedure: Right extracorporeal shockwave lithotripsy with cystoscopy and right ureteral stent placement Same procedure as scheduled: Yes Indications: This 73-year-old male with known history of kidney stones presented with follow-up and was found to have a recurrent large right renal pelvic stone. He presents at this time for the above procedure to treat his stone. Surgeon: Girish Nuñez Click Yes if Unassisted: Yes Anesthesia Type: General Operative Notes Findings: At cystoscopy urethral meatus is normal urethra is normal along its length prostate shows moderate obstructive character. The right and left ureteral orifice were normal position with clear efflux. There was severe trabeculation within the bladder and no other abnormality. The stone is noted to be in the renal pelvis in his larger than a cm. But does appear to be quite ?fluffy?. The 7 Slovenian multilink stent was left in good position in the right collecting system without a string. There were no other notable findings. Closure Type: not applicable Specimen(s): none sent Prosthetic devices, grafts, tissues, transplants, or devices: Seven Slovenian by multi length right ureteral stent without a string. Estimated Blood Loss (mL): 0 Procedure in detail: Procedure in detail: After informed consent was obtained, the patient was identified and brought to the operating room where he was placed in a supine position on the Lithotripter. Once there he had anesthesia induced and maintained. Ensuring an adequate level of anesthesia the patient was transition to the lithotomy position where he was prepped, draped and prepared for Transurethral procedure. After prepping, draping, assuring an adequate level of anesthesia, time-out and administration of antibiotics 22 Slovenian cystoscope was passed through the urethra prostate and into the bladder where cystoscopy was performed. The right ureteral orifice was identified and the guidewire was passed up in the collecting system under fluoroscopic guidance. The stent was then passed over the wire in a coaxial fashion position with the renal pelvis under fluoroscopic visualization in the bladder under direct vision. With the stent in good position of the nylon harness was removed the stent was left in good position the bladder was drained the scope was removed and the patient went onto lithotripsy. The stone was then targeted via the imaging system and shockwave was delivered at level 7 for a total of 2000 shocks. There was periodic reimaging and re localization to make sure maximal energy delivery was done to the stone. At 2000 shocks the stone had appeared fragmented it had dispersed somewhat and it looked as if we would have a good result. This was confirmed as the shockwave head was rotated out and fluoroscopy was performed. At this point given the fragmentation of the stone the patient was awakened having tolerated the procedure well to be transferred to the postanesthesia care unit for recovery. Once recover their will be discharged to home follow up in my office in 10-14 days with a KUB. There were no complications. Complications: none Post-operative Condition: stable Disposition: PACU Plan for aftercare: Once fully awake and alert the patient will be discharged to home to follow up my office in approximately 10-14 days with a KUB he will strain his urine and save any fragments which he will bring to follow-up.
[2023-05-11] MEDS: OXYBUTYNIN 5 MG TABLET PO (11:33)
[2023-05-11] MEDS: PHENAZOPYRIDINE 100 MG TABLET 200 MG PO (11:33)
== END 2023-05-11 12:00 | disposition home or self-care (01) ==
PROVIDERS: PCP Family Medicine; Referring Provider Urology; Visit Provider Urology
PROC: (CPT 50590; principal; 2023-05-11 10:30)
DX: N20.0 Calculus of kidney (principal)
CPT/HCPCS: 50590; 52332; J0690; J2704; J3010

== ENCOUNTER → 2023-05-24 12:46 | Outpatient (CLI) | payer MEDICARE, SELFPAY ==
--- NOTE | 2023-05-24 12:48 | DI.RAD.S_ITS ---
PROCEDURE: XR KUB INDICATIONS: kidney stone/ureteral stent TECHNIQUE: One view of the abdomen acquired. COMPARISON: [facility], CT, CT ABDOMEN PELVIS WO CON, 04/12/2023, 11:59. [facility], CR, XR KUB, 03/24/2023, 9:46. [facility], CR, XR KUB, 09/09/2022, 11:24. FINDINGS: Surgical changes and devices: Double-J catheter projects over the right retroperitoneum. Bowel: Bowel gas pattern is unremarkable. Soft tissues: Phleboliths project over the pelvis; similar to prior study. Right renal stone seen on prior KUB is not visualized on today's radiograph. Bones: No suspicious bony lesions. IMPRESSION: 1. Interval placement of a right double-J ureteral catheter 2. The 1.25 cm right renal stone no longer seen Dictated by: Oleg Lux M.D. on 05/24/2023 at 15:54 Approved by: Oleg Lux M.D. on 05/24/2023 at 15:57
== END ==
PROVIDERS: PCP Family Medicine; Referring Provider Urology; Visit Provider Urology
DX: N20.0 Calculus of kidney (principal); R31.29 Other microscopic hematuria; R39.9 Unspecified symptoms and signs involving the genitourinary system; Z96.0 Presence of urogenital implants
CPT/HCPCS: 74018

== ENCOUNTER → 2023-05-27 10:36 | Outpatient (CLI) | payer MEDICARE, SELFPAY | PROVIDERS: PCP Family Medicine; Visit Provider Urology | DX: C61 Malignant neoplasm of prostate (principal); N20.0 Calculus of kidney; R31.29 Other microscopic hematuria; R39.9 Unspecified symptoms and signs involving the genitourinary system | CPT/HCPCS: 81002; 87086 ==

== ENCOUNTER → 2023-06-04 09:01 | Outpatient (CLI) | payer MEDICARE, SELFPAY | PROVIDERS: PCP Family Medicine; Visit Provider Urology | DX: R39.9 Unspecified symptoms and signs involving the genitourinary system (principal) | CPT/HCPCS: 52310; 81002; 87086 ==

== ENCOUNTER → 2023-06-17 09:39 | Outpatient (CLI) | payer MEDICARE, SELFPAY ==
[2023-06-17 11:27] LABS: Calcium 9.7 mg/dL (8.4-10.2); Phosphorous 3.9 mg/dL (2.3-3.7); Uric Acid 3.9 mg/dL (3.5-8.5)
[2023-06-19 07:35] LABS: PSA Free % 16.3 % (.); PSA, Total 4.9 ng/mL (0.0-4.0)
[2023-06-20 12:53] LABS: Calcium 9.5 mg/dL (8.6-10.2); Parathyroid Hormone, Intact 42 pg/mL (15-65)
== END ==
PROVIDERS: PCP Family Medicine; Referring Provider Urology; Visit Provider Urology
DX: N20.0 Calculus of kidney (principal); C61 Malignant neoplasm of prostate; R39.9 Unspecified symptoms and signs involving the genitourinary system
CPT/HCPCS: 36415; 81002; 82310; 83970; 84100; 84153; 84154; 84550

== ENCOUNTER → 2023-06-19 12:11 | Outpatient (CLI) | payer MEDICARE, SELFPAY ==
[2023-06-19 13:01] LABS: Phosphorous 3.6 mg/dL (2.3-3.7)
== END ==
LOC: LAB 12:12
PROVIDERS: PCP Family Medicine; Referring Provider Urology; Visit Provider Urology
DX: N20.0 Calculus of kidney (principal); R39.9 Unspecified symptoms and signs involving the genitourinary system
CPT/HCPCS: 36415; 84100

== ENCOUNTER → 2023-08-09 12:21 | Outpatient (CLI) | payer MEDICARE, SELFPAY ==
[2023-08-10 08:45] LABS: PSA, Total 6.1 ng/mL (0.0-4.0)
== END ==
PROVIDERS: PCP Family Medicine; Referring Provider Urology; Visit Provider Urology
DX: C61 Malignant neoplasm of prostate (principal)
CPT/HCPCS: 36415; 84153; 84154

== ENCOUNTER → 2023-09-02 09:16 | Outpatient (CLI) | payer MEDICARE, SELFPAY ==
--- NOTE | 2023-09-02 09:18 | DI.CT.S_ITS ---
PROCEDURE: CT ANGIO HEAD INDICATIONS: eval ataxia TECHNIQUE: Precontrast 4.5 mm thick angled axial sections acquired from the foramen magnum to the vertex. After the administration of intravenous contrast, 1 mm thick sections acquired through the [place] of [place]. Postcontrast 4.5 mm thick sections then re-acquired from the foramen magnum to the vertex. 10 mm thick vgdvhyy-esbqqezwm-ewrehdxcqo (MIP) reformats were acquired of the central intracranial vasculature. For radiation dose reduction, the following was used: automated exposure control, adjustment of mA and/or kV according to patient size. COMPARISON: None. FINDINGS: Image quality: Mild streak artifact can be seen through the skull base. Anterior circulation: Intracranial internal carotid arteries are normal in size and flow. There is a diminutive left A1 segment, with a corresponding robust right A1 segment. This is considered to be a normal developmental variant of the [place], of typically no clinical consequence. The flow within the paired anterior cerebral arteries is otherwise normal and symmetric. The flow within the middle cerebral arteries is normal and symmetric. The anterior communicating artery is seen. No aneurysms are seen. Posterior circulation: Visualized portions of the vertebral arteries demonstrate normal caliber, and join to form a normal appearing basilar artery. There is a prominent left posterior communicating artery seen, with an accompanying diminutive left P1 segment. This is attributed to a type origin of the right posterior cerebral artery, which is considered to be a normal developmental variant of typically no clinical consequence. The flow within the posterior cerebral arteries is normal and symmetric. No aneurysms are seen. CSF spaces: Ventricles are normal in size and shape. Basal cisterns are patent. No extra-axial fluid collections. Brain: No midline shift. No intracranial bleeds or masses. Arnett-white matter interface appears intact. Skull and face: Calvarium and facial bones appear intact, without suspicious lesions. Sinuses: Visualized sinuses and mastoids are clear. IMPRESSION: No imaging explanation is found for this patient's presenting symptoms. No significant intracranial arterial abnormality is seen. Wjekeu-be-Hcxigu developmental anomalies are incidentally noted. Dictated by: Wilmer Sahu M.D. on 09/02/2023 at 10:12 Approved by: Wilmer Sahu M.D. on 09/02/2023 at 10:13
[2023-09-02 09:46] LABS: Estimated Glomerular Filt Rate > 60 mL/min (>60)
== END ==
LOC: CT 09:17
PROVIDERS: Radiology Diagnostic Radiology; PCP Family Medicine; Referring Provider Family Medicine; Visit Provider Family Medicine
DX: R27.0 Ataxia, unspecified (principal); R93.89 Abnormal findings on diagnostic imaging of other specified body structures
CPT/HCPCS: 36415; 70496; 82565; Q9967

== ENCOUNTER → 2023-09-15 15:02 | Outpatient (CLI) | payer MEDICARE, SELFPAY ==
[2023-09-15 17:32] LABS: Prostate Specific Antigen 4.64 ng/mL (0.10-4.00)
== END ==
PROVIDERS: PCP Family Medicine; Referring Provider Urology; Visit Provider Urology
DX: R97.20 Elevated prostate specific antigen [PSA] (principal)
CPT/HCPCS: 36415; 84153

== ENCOUNTER → 2023-10-19 13:59 | Outpatient (CLI) | payer MEDICARE, SELFPAY ==
[2023-10-19 15:27] LABS: Alanine Aminotransferase 18 IU/L (<50); Albumin 4.1 g/dL (3.5-5.0); Albumin Globulin Ratio 1.8 (1.0-2.8); Alkaline Phosphatase 68 U/L (38-126); Aspartate Aminotransferase 23 IU/L (17-59); BUN Creatinine Ratio 18.2 (6-22); Bilirubin Total 0.5 mg/dL (0.2-1.3); Blood Urea Nitrogen 16 mg/dL (9-20); Calcium 8.9 mg/dL (8.4-10.2); Carbon Dioxide 27 mmol/L (22-32); Chloride 106 mmol/L (98-107); Cholesterol 206 mg/dL (140-199); Estimated Glomerular Filt Rate > 60 mL/min (>60); Globulin 2.3 g/dL (1.7-4.1); Glucose 103 mg/dL (80-110); HDL Cholesterol 71 mg/dL (40-60); HEMOLYSIS < 15 (0-50); LDL Cholesterol Calculated 126 mg/dL (<100); Potassium 4.7 mmol/L (3.4-5.1); Sodium 139 mmol/L (137-145); Total Protein 6.4 g/dL (6.3-8.2); Triglycerides 44 mg/dL (35-150)
[2023-10-22 12:35] LABS: Add Manual Diff / Slide Review NO; Basophils Absolute Auto 0 /uL (0-100); Basophils Percent Auto 0.6 % (0-2); Eosinophils Absolute Auto 100 /uL (0-450); Hematocrit 40.7 % (41-53); Hemoglobin 13.9 g/dL (13.5-17.5); Lymphocytes Absolute Auto 1200 /uL (1100-4500); Lymphocytes Percent Auto 13.8 % (25-40); Mean Corpuscular HGB Conc 34.1 % (30-36); Mean Corpuscular Hemoglobin 32.6 PG (26-34); Mean Corpuscular Volume 95.4 fL (80-100); Monocytes Absolute Auto 600 /uL (0-900); Monocytes Percent Auto 7.2 % (3-14); Neutrophils Absolute Auto 6600 /uL (1500-7000); Neutrophils Percent Auto 77.4 % (50-75); Platelet Count 313 X10^3/uL (150-400); Red Blood Cell Count 4.27 X10^6/uL (4.5-5.9); Red Cell Distribution Width 13.8 % (11.6-14.8); White Blood Cell Count 8.6 X10^3/uL (4.5-11.0)
[2023-10-22 13:00] LABS: Alanine Aminotransferase 16 IU/L (<50); Albumin 3.9 g/dL (3.5-5.0); Albumin Globulin Ratio 1.6 (1.0-2.8); Alkaline Phosphatase 71 U/L (38-126); Aspartate Aminotransferase 20 IU/L (17-59); BUN Creatinine Ratio 18.3 (6-22); Bilirubin Total 0.5 mg/dL (0.2-1.3); Blood Urea Nitrogen 15 mg/dL (9-20); Calcium 9.3 mg/dL (8.4-10.2); Carbon Dioxide 28 mmol/L (22-32); Chloride 105 mmol/L (98-107); Estimated Glomerular Filt Rate > 60 mL/min (>60); Globulin 2.4 g/dL (1.7-4.1); Glucose 109 mg/dL (80-110); HEMOLYSIS < 15 (0-50); Potassium 4.4 mmol/L (3.4-5.1); Sodium 137 mmol/L (137-145); Total Protein 6.3 g/dL (6.3-8.2)
== END ==
PROVIDERS: Urology; PCP Family Medicine; Referring Provider Physician Assistant; Visit Provider Physician Assistant
DX: L40.0 Psoriasis vulgaris (principal); C61 Malignant neoplasm of prostate; E78.5 Hyperlipidemia, unspecified
CPT/HCPCS: 36415; 80053; 80061; 84153; 85025; 86480

== ENCOUNTER → 2023-10-26 09:40 | Outpatient (CLI) | payer MEDICARE, SELFPAY ==
[2023-10-26 10:33] LABS: Add Manual Diff / Slide Review NO; Basophils Absolute Auto 0 /uL (0-100); Basophils Percent Auto 0.7 % (0-2); Eosinophils Absolute Auto 100 /uL (0-450); Eosinophils Percent Auto 1.7 % (2-4); Hematocrit 42.1 % (41-53); Hemoglobin 14.4 g/dL (13.5-17.5); Lymphocytes Absolute Auto 1400 /uL (1100-4500); Lymphocytes Percent Auto 27.5 % (25-40); Mean Corpuscular HGB Conc 34.2 % (30-36); Mean Corpuscular Hemoglobin 32.9 PG (26-34); Mean Corpuscular Volume 96.3 fL (80-100); Monocytes Absolute Auto 500 /uL (0-900); Monocytes Percent Auto 8.7 % (3-14); Neutrophils Absolute Auto 3200 /uL (1500-7000); Neutrophils Percent Auto 61.4 % (50-75); Platelet Count 297 X10^3/uL (150-400); Red Blood Cell Count 4.37 X10^6/uL (4.5-5.9); White Blood Cell Count 5.2 X10^3/uL (4.5-11.0)
[2023-10-26 11:12] LABS: Alanine Aminotransferase 16 IU/L (<50); Albumin 4.1 g/dL (3.5-5.0); Albumin Globulin Ratio 1.9 (1.0-2.8); Alkaline Phosphatase 77 U/L (38-126); Aspartate Aminotransferase 21 IU/L (17-59); BUN Creatinine Ratio 18.3 (6-22); Bilirubin Total 0.4 mg/dL (0.2-1.3); Blood Urea Nitrogen 15 mg/dL (9-20); Calcium 9.2 mg/dL (8.4-10.2); Carbon Dioxide 28 mmol/L (22-32); Chloride 103 mmol/L (98-107); Estimated Glomerular Filt Rate > 60 mL/min (>60); Globulin 2.2 g/dL (1.7-4.1); Glucose 102 mg/dL (80-110); HEMOLYSIS < 15 (0-50); Sodium 138 mmol/L (137-145); Total Protein 6.3 g/dL (6.3-8.2)
== END ==
PROVIDERS: PCP Family Medicine; Referring Provider Physician Assistant; Visit Provider Physician Assistant
DX: L40.0 Psoriasis vulgaris (principal)
CPT/HCPCS: 36415; 80053; 85025; 86480

== ENCOUNTER → 2023-11-05 12:51 | Outpatient (CLI) | payer MEDICARE, SELFPAY ==
[2023-11-05 14:41] LABS: Prostate Specific Antigen 4.47 ng/mL (0.10-4.00)
== END ==
PROVIDERS: PCP Family Medicine; Referring Provider Urology; Visit Provider Urology
DX: C61 Malignant neoplasm of prostate (principal); R97.20 Elevated prostate specific antigen [PSA]; N40.0 Benign prostatic hyperplasia without lower urinary tract symptoms
CPT/HCPCS: 36415; 84153

== ENCOUNTER → 2024-03-10 12:14 | Outpatient (CLI) | payer MEDICARE, SELFPAY ==
[2024-03-10 13:45] LABS: Prostate Specific Antigen 4.97 ng/mL (0.10-4.00)
== END ==
PROVIDERS: PCP Family Medicine; Referring Provider Urology; Visit Provider Urology
DX: C61 Malignant neoplasm of prostate (principal); R39.9 Unspecified symptoms and signs involving the genitourinary system
CPT/HCPCS: 36415; 84153

== ENCOUNTER → 2024-03-31 11:12 | Outpatient (CLI) | payer MEDICARE, SELFPAY ==
[2024-03-31 13:16] LABS: Prostate Specific Antigen 4.53 ng/mL (0.10-4.00)
[2024-03-31 13:17] LABS: TSH w/ Reflex to FT4 0.91 uIU/mL (0.47-4.68)
[2024-03-31 13:53] LABS: Folate > 20.0 ng/mL (2.76-20.0); Vitamin B12 852 pg/mL (239-931)
[2024-03-31 16:41] LABS: Vitamin D 25 Hydroxy (D3) 34.1 ng/mL (30.0-100.0)
== END ==
LOC: LAB 11:15
PROVIDERS: Urology; PCP Family Medicine; Referring Provider Psychiatry & Neurology Neurology; Visit Provider Psychiatry & Neurology Neurology
DX: C61 Malignant neoplasm of prostate (principal); R41.3 Other amnesia; E55.9 Vitamin D deficiency, unspecified; R26.89 Other abnormalities of gait and mobility; H53.8 Other visual disturbances; R42 Dizziness and giddiness; Z78.9 Other specified health status; F10.11 Alcohol abuse, in remission
CPT/HCPCS: 36415; 80175; 82306; 82607; 82746; 84153; 84443

== ENCOUNTER → 2024-06-21 14:30 | Outpatient (CLI) | payer MEDICARE, SELFPAY ==
--- NOTE | 2024-06-21 14:33 | DI.RAD.S_ITS ---
PROCEDURE: XR KUB INDICATIONS: kidney stones TECHNIQUE: One view of the abdomen acquired. COMPARISON: [facility], CR, XR KUB, 05/24/2023, 12:50. [facility], CR, XR KUB, 03/24/2023, 9:46. FINDINGS: Surgical changes and devices: Interval removal of the right-sided nephroureteral stent. Bowel: Bowel gas pattern is normal. Soft tissues: No suspicious abdominal calcifications. Visualized solid organ contours appear normal in size. Bones: No suspicious bony lesions. IMPRESSION: No nephrolithiasis identified. Interval removal of the right-sided nephroureteral stent. Dictated by: Lenny Avila M.D. on 06/21/2024 at 15:56 Approved by: Lenny Avila M.D. on 06/21/2024 at 15:56
[2024-06-21 15:58] LABS: Alanine Aminotransferase 21 IU/L (<50); Albumin 4.6 g/dL (3.5-5.0); Albumin Globulin Ratio 1.9 (1.0-2.8); Alkaline Phosphatase 79 U/L (38-126); Aspartate Aminotransferase 25 IU/L (17-59); BUN Creatinine Ratio 17.8 (6-22); Bilirubin Total 0.5 mg/dL (0.2-1.3); Blood Urea Nitrogen 16 mg/dL (9-20); Carbon Dioxide 25 mmol/L (22-32); Chloride 103 mmol/L (98-107); Estimated Glomerular Filt Rate > 60 mL/min (>60); Globulin 2.4 g/dL (1.7-4.1); Glucose 107 mg/dL (80-110); HEMOLYSIS < 15 (0-50); Potassium 4.3 mmol/L (3.4-5.1); Sodium 139 mmol/L (137-145)
[2024-06-21 16:27] LABS: Prostate Specific Antigen Scrn 6.02 ng/mL (0.1-4.0)
== END ==
LOC: LAB 14:31
PROVIDERS: PCP Family Medicine; Referring Provider Urology; Visit Provider Family Medicine
DX: Z12.5 Encounter for screening for malignant neoplasm of prostate (principal); R82.994 Hypercalciuria; N20.0 Calculus of kidney; E78.5 Hyperlipidemia, unspecified; N40.0 Benign prostatic hyperplasia without lower urinary tract symptoms
CPT/HCPCS: 36415; 74018; 80053; G0103

== ENCOUNTER → 2024-08-07 12:23 | Outpatient (CLI) | payer MEDICARE, SELFPAY ==
[2024-08-07 13:23] LABS: Prostate Specific Antigen 5.92 ng/mL (0.10-4.00)
== END ==
PROVIDERS: PCP Family Medicine; Referring Provider Urology; Visit Provider Urology
DX: C61 Malignant neoplasm of prostate (principal)
CPT/HCPCS: 36415; 84153

== ENCOUNTER → 2024-09-25 14:16 | Outpatient (CLI) | payer MEDICARE, SELFPAY ==
[2024-09-25 15:30] LABS: Prostate Specific Antigen 5.84 ng/mL (0.10-4.00)
== END ==
PROVIDERS: Family Provider Family Medicine; PCP Family Medicine; Referring Provider Urology; Visit Provider Urology
DX: C61 Malignant neoplasm of prostate (principal); N40.0 Benign prostatic hyperplasia without lower urinary tract symptoms; R97.20 Elevated prostate specific antigen [PSA]
CPT/HCPCS: 36415; 84153

== ENCOUNTER 2024-11-07 08:28 | Day surgery (SDC) | payer MEDICARE, SELFPAY ==
[2024-10-31 12:43] VITALS: BMI 20.2
[2024-11-07] VITALS (8 sets, daily range): BP systolic 94–133; BP diastolic 57–79; PULSE 56–75; RESP 16–21; TEMP 36.1–36.3; O2SAT 95–99; BMI 20.2
[2024-11-07] MEDS: LACTATED RINGERS 1,000 ML 21 ML IV (08:44)
--- NOTE | 2024-11-07 09:35 | PM.PREOP ---
Pre-operative Note COVID-19 COVID-19 status: Not tested Interval Note History & Physical reviewed/Exam performed by Physician: Yes Changes to H&P: No
[2024-11-07] MEDS: LIDOCAINE 1% 20 ML INJ (10:23)
--- NOTE | 2024-11-07 10:24 | SUR.OPER ---
Lateral on stretcher, head on pillow, legs bent, pillow between legs.
--- NOTE | 2024-11-07 10:48 | PM.OP.1 ---
Operative Date/Time/Diagnoses Date of procedure: 11/07/24 Time of procedure: 10:15 Pre-op diagnosis: Prostate cancer Post-op diagnosis: same Procedure & Clinicians Procedure: Transrectal ultrasound guided prostate biopsy Same procedure(s) as scheduled: Yes Indications: 74 y/o M w/ h/o favorable intermediate-risk prostate cancer diagnosed via a TRUS prostate biopsy in Nov who was previously having his PSA checked every few months with Dr. Nuñez. Discussed treatment options for his disease to include active surveillance, a radical prostatectomy or XRT. Discussed in detail that active surveillance currently entails: serial PSA/ROGELIO every 6 months, confirmatory biopsy within 12-18 months of original diagnosis, prostate MRI and a repeat prostate biopsy alternating every 18 months thereafter. If any of the aforementioned pieces of evaluation (PSA, ROGELIO, prostate MRI) are concerning, then a repeat prostate biopsy would come at an earlier interval. As his biopsy was nearly 2 years ago, would strongly recommend we move forward with a TRUS prostate biopsy. Also discussed that a TRUS prostate biopsy may not always identify prostate cancer that is present as it is a small sampling of the prostate gland and small foci of cancer may be missed. Lastly, discussed that some men may require multiple biopsies over several years in order to properly diagnose their prostate cancer. Discussed the risks of the procedure to include but not limited to pain, bleeding, infection, blood in the stool for several weeks, blood and/or blood clots within the urine for several weeks as well as bloody ejaculate for several months. Up to 1-2% of men may get an infection from their biopsy that is severe enough that they require admission to the hospital and administration of IV antibiotics. To mitigate this risk, he will use an enema the night before and the morning of the procedure as well as take an antibiotic the morning before, the morning of and the morning after his biopsy. He would prefer this be completed under anesthesia, informed consent was obtained today in clinic. Surgeon: Jose Moreno Click Yes if Unassisted: Yes Anesthesia Type: MAC +/- Operative Notes Findings: 56g gland Closure Type: not applicable Specimen(s): other (prostate biopsy) Applied: none Estimated Blood Loss (mL): 5 Blood products transfused: none Procedure in detail: Transrectal Ultrasound of the Prostate with Needle Biopsy: [id number] Indication: 74 y/o M w/ h/o favorable intermediate-risk prostate cancer diagnosed via a TRUS prostate biopsy in Nov who is in need of his confirmatory TRUS prostate biopsy. Following informed consent, he was transitioned into the left lateral decubitus position. The ultrasound probe was then coated in lubrication and gently inserted into his rectum. A total of 10cc of 1% Lidocaine was used for local anesthetic throughout the procedure. Transrectal US images of his prostate were then performed and a volume of 56 cc was calculated. A total of 12 biopsies were taken from the prostate and submitted as six different pathologic specimens (right base, right mid, right apex, left base, left mid, left apex). Hemostasis was evaluated at the end of the procedure and noted to be excellent. He tolerated the procedure well without any complications and the ultrasound probe was gently removed from his rectum. Complications: none Post-operative Condition: stable Disposition: PACU Plan for aftercare: Discharge home from PACU. Will return to Urology clinic to discuss his biopsy results.
--- NOTE | 2024-11-07 12:19 | SUR.PHASEII ---
Pt has d/c orders to void before d/c; pt in bathroom on toilet, states he voided a lot of urine but flushed toilet before it could be assessed (despite being asked to not flush);d/w Dr Moreno who requests bladder scan; pt was scanned for max 13cc. Pt currently changing into his clothes and will d/c with his to home.
== END 2024-11-07 12:35 | disposition home or self-care (01) ==
PROVIDERS: PCP Family Medicine; Referring Provider Urology; Visit Provider Urology
PROC: 0VJ43ZZ Inspection of Prostate and Seminal Vesicles, Percutaneous Approach (ICD-10-PCS; CPT 55876; principal; 2024-11-07 11:30)
DX: C61 Malignant neoplasm of prostate (principal); Z85.46 Personal history of malignant neoplasm of prostate
CPT/HCPCS: 55700; 76872; 76942; J2405; J2704; J3010

== ENCOUNTER 2024-12-16 11:40 | Emergency (ER) | payer MEDICARE, SELFPAY ==
[2024-12-16] VITALS (11 sets, daily range): BP systolic 139–159; BP diastolic 72–89; PULSE 49–58; RESP 18; TEMP 37; O2SAT 94–98
--- NOTE | 2024-12-16 11:52 | DI.RAD.S_ITS ---
PROCEDURE: XR HIP W PEL IF DONE RT 2V INDICATIONS: pain fall TECHNIQUE: 2 views of the hip were acquired. COMPARISON: None. FINDINGS: Bones: No fractures or dislocations. No suspicious bony lesions. The visualized pelvic ring appears intact. Soft tissues: No suspicious soft tissue calcifications or masses. IMPRESSION: No acute bony abnormality. Approved by: Syed García M.D. on 12/16/2024 at 12:00
--- NOTE | 2024-12-16 11:52 | DI.RAD.S_ITS ---
PROCEDURE: XR FOOT RT MIN 3V INDICATIONS: crush injury TECHNIQUE: 3 views of the foot were acquired. COMPARISON: None. FINDINGS: Bones: Oblique nondisplaced fracture through the 2nd through 5th metatarsals Soft tissues: No tibiotalar joint effusion. Achilles tendon appears normal. IMPRESSION: Nondisplaced 2nd through 5th metatarsal fractures Approved by: Syed García M.D. on 12/16/2024 at 12:01
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
--- NOTE | 2024-12-16 13:33 | DI.CT.S_ITS ---
PROCEDURE: CT LE RT WO CON INDICATIONS: foot fracture TECHNIQUE: Noncontrast 3 mm axial sections acquired through the bony pelvis. Additional 3 mm axial sections acquired through the symptomatic hip joint, with coronal and sagittal reformats. COMPARISON: [facility], CR, XR FOOT RT MIN 3V, 12/16/2024, 11:52. FINDINGS: Image quality: Excellent. Bones: Multiple metatarsal fractures are present. Comminuted fracture of the distal 2nd metatarsal diaphysis. Oblique fracture through the mid 3rd metatarsal diaphysis is minimally displaced. The 4th metatarsal is preserved, and there is a nondisplaced fracture through the base of the 5th metatarsal diaphysis. Remainder of the osseous structures are intact. Ankle mortise is preserved. Soft tissues: Associated soft tissue edema. No radiopaque foreign bodies. IMPRESSION: Second, 3rd and 5th metatarsal fractures Approved by: Syed García M.D. on 12/16/2024 at 14:21
== END 2024-12-16 16:34 | disposition home or self-care (01) ==
PROVIDERS: Emergency Provider Emergency Medicine; PCP Family Medicine
DX: S92.321A Displaced fracture of second metatarsal bone, right foot, initial encounter for closed fracture (principal); S92.331A Displaced fracture of third metatarsal bone, right foot, initial encounter for closed fracture; S92.351A Displaced fracture of fifth metatarsal bone, right foot, initial encounter for closed fracture; W22.8XXA Striking against or struck by other objects, initial encounter
CPT/HCPCS: 29515; 73502; 73630; 73700; 99284

== ENCOUNTER → 2025-01-01 07:56 | Outpatient (CLI) | payer MEDICARE, SELFPAY ==
--- NOTE | 2025-01-01 07:58 | DI.CT.S_ITS ---
PROCEDURE: CT CHEST ABD PEL W CON INDICATIONS: 74 y/o M w/ prostate cancer, eval for mets TECHNIQUE: After the administration of intravenous contrast, 5 mm thick sections acquired from the lung apices to the symphysis. 5 mm coronal and sagittal reformats were performed, with additional 7 mm MIP reformats through the lungs. For radiation dose reduction, the following was used: automated exposure control, adjustment of mA and/or kV according to patient size. COMPARISON: [facility], CT, CT ABDOMEN PELVIS WO [facility], 04/12/2023, 11:59. FINDINGS: Image quality: Excellent. CHEST: Lower Neck: No enlarged lymph nodes. Thyroid: No thyroid nodules which require sonographic follow up, per consensus guidelines. Axillae: No enlarged lymph nodes. Chest Wall: Unremarkable. Lungs and Pleura: No pneumothorax or pleural effusions. There is significant breathing motion artifact in the mid to lower lungs. There is mild bilateral scarring/subsegmental atelectasis, no definite focal lesion seen. Heart: Heart size is normal. No pericardial effusion. Thoracic Vessels: The aorta and pulmonary arteries demonstrate normal size. Mediastinum and Lorna: No enlarged lymph nodes. Esophagus: No wall thickening. No hiatal hernia. ABDOMEN: Liver: No solid mass. Gallbladder: No radiopaque gallstones or wall thickening. Biliary ducts: No biliary dilation. Pancreas: No ductal dilation. Spleen: Size is within normal limits. Adrenal Glands: No adrenal nodules. Kidneys and Ureters: No hydronephrosis. No solid mass. No complex renal cystic lesion which requires follow up. Stomach and Bowel: Normal colonic caliber, without significant wall thickening. Peritoneum: No abnormal intraperitoneal fluid. No free air. Ventral Wall: No significant ventral hernia. Abdominal Nodes: No retroperitoneal or mesenteric adenopathy by size criteria. Vessels: Aorta and inferior vena cava are normal in size. PELVIS: Pelvic Organs: Unremarkable. Bladder: No bladder wall thickening, accounting for underdistention. Pelvic Nodes: No enlarged lymph nodes. Miscellaneous: No inguinal hernias are seen. Bones: There is new mild compression deformity of the L2 vertebral body, with irregular sclerosis superiorly. No retropulsion or osseous fragment. IMPRESSION: 1. No significant adenopathy or other soft tissue mass seen. 2. New mild L2 compression fracture, most likely benign, can be confirmed with MRI. Dictated by: Kam Estevez M.D. on 01/01/2025 at 13:43 Approved by: Kam Estevez M.D. on 01/01/2025 at 13:53
--- NOTE | 2025-01-01 07:58 | DI.NM.S_ITS ---
PROCEDURE: NM BONE SCAN WHOLE BODY RADIOPHARMACEUTICAL: 22 mCi Tc-99m MDP IV. INDICATIONS: 74 y/o M w/ prostate cancer, eval for mets TECHNIQUE: Delayed whole-body scintigrams were obtained approximately 3-4 hours after intravenous injection of radiotracer. Anterior and posterior views were acquired from vertex to feet. Additional left and right oblique views of the bilateral hips were obtained. COMPARISON: [facility], CR, XR HIP W PEL RT 2V, 12/16/2024, 11:52. [facility], CT, CT LE RT WO CON, 12/16/2024, 13:44. [facility], CR, XR FOOT RT MIN 3V, 12/16/2024, 11:52. [facility], CT, CT CHEST ABD PEL W CON, 01/01/2025, 9:00. FINDINGS: Normal soft tissue, renal and bladder activity. Indeterminate moderately intense focus of uptake in the right pelvis at the medial aspect of the right acetabulum. No CT correlate is seen on the comparison imaging. Linear activity in the superior aspect of the L2 vertebral body is noted. Small focal area of uptake in the region of the left L4-5 disc space. This is likely degenerative in origin. Extensive uptake is noted throughout the metatarsals corresponding to the patient's known fractures. IMPRESSION: Indeterminate focal uptake in the medial right acetabulum/pelvis. No definite CT correlate. Given the history of recent trauma, findings could represent an occult fracture. Findings could be confirmed with MRI of the bony pelvis. Linear uptake at the L2 vertebral body likely represents uptake from compression fracture. Dictated by: Marilou Birmingham M.D. on 01/03/2025 at 14:08 Approved by: Marilou Birmingham M.D. on 01/03/2025 at 14:22
[2025-01-01 08:20] LABS: Estimated Glomerular Filt Rate > 60 mL/min (>60)
== END ==
PROVIDERS: PCP Family Medicine; Referring Provider Family Medicine; Visit Provider Urology
DX: C61 Malignant neoplasm of prostate (principal); S32.029A Unspecified fracture of second lumbar vertebra, initial encounter for closed fracture
CPT/HCPCS: 36415; 71260; 74177; 78306; 82565; A9503; Q9967